=== PATIENT | female | born 1950 | race Hispanic/Latino ===

== ENCOUNTER 2017-10-12 11:58 | Emergency (ER) | payer OTHER ==
[2017-10-12 15:18] LABS: Urine Blood TRACE (NEG); Urine Glucose NEGATIVE (NEG); Urine Protein 1+ (NEG); Urine pH 6.5 (5.0-7.0)
[2017-10-12 15:51] LABS: Absolute Lymphocytes (CBC) 1.8 K/uL (0.7-4.9); Absolute Monocytes 0.7 K/uL (0.1-1.3); Absolute Neutrophil 6.1 K/uL (1.8-8.0); Eosinophils % 1.3 % (0-4.4); Hematocrit 41.6 % (36.0-45.0); Lymphocytes % 20.3 % (15.3-44.8); MCH 32.3 pg (27.0-35.0); MCV 95.9 fL (80-100); MPV 8.8 fL (7.6-11.3); Monocytes % 8.1 % (3.3-12.3); RBC Red Blood Cell Count 4.33 M/uL (3.86-4.86)
--- NOTE | 2017-10-12 15:54 | RAD REPORT ---
EXAM DESCRIPTION: RAD - Chest Single View - 10/12/2017 3:46 pm CLINICAL HISTORY: COUGH Chest pain. COMPARISON: Chest Single View dated 02/11/2016; Chest Single View dated 09/22/2015; CHEST SINGLE VIEW dated 08/08/2013 FINDINGS: Portable technique limits examination quality. The lungs are grossly clear. The heart is normal in size. No displaced fractures. IMPRESSION: No acute intrathoracic process suspected.
[2017-10-12 16:05] LABS: Potassium 3.7 mmol/L (3.5-5.1)
--- NOTE | 2017-10-12 17:59 | ER ---
Nurse's Notes [facility] Name: Cj Nash Age: 67 yrs Sex: Female : 1950 Arrival Date: 10/12/2017 Time: 12:01 Bed 27 Private MD: Victor Hugo Houser E Diagnosis: Bronchitis, not specified as acute or chronic;Cough;Musculoskeletal/upper back pain Presentation: 10/12 12:04 Presenting complaint: Patient states: cough x 4-5 months. Sharp mid back pain that sv started 2 weeks ago with SOB during an episode. Transition of care: patient was not received from another setting of care. Onset of symptoms is unknown. Care prior to arrival: None. 12:04 Method Of Arrival: Ambulatory sv 12:04 Acuity: SAMIR 3 sv 18:21 Risk Assessment: Do you want to hurt yourself or someone else? Patient reports no rv desire to harm self or others. Initial Sepsis Screen: Does the patient meet any 2 criteria? No. Patient's initial sepsis screen is negative. Does the patient have a suspected source of infection? No. Patient's initial sepsis screen is negative. Historical: - Allergies: 12:06 Codeine; sv 12:06 Morphine; sv - Home Meds: 12:06 amlodipine 5 mg tab 1 tab once daily [Active]; duloxetine 60 mg Oral cpDR 1 cap once sv daily [Active]; lorazepam 0.5 mg Oral tab 1 tab 2 times per day for Anxiety [Active]; - PMHx: 12:06 Anxiety; Hyperlipidemia; Hypertension; sv - PSHx: 12:06 Tubal ligation; Cholecystectomy; Hysterectomy; sv - Immunization history:: Adult Immunizations up to date. - Social history:: Smoking status: Patient/guardian denies using tobacco. - Ebola Screening: : No symptoms or risks identified at this time. Screenin:57 Abuse screen: Denies threats or abuse. Denies injuries from another. Nutritional ed1 screening: No deficits noted. Tuberculosis screening: No symptoms or risk factors identified. Fall Risk None identified. Assessment: 12:57 General: Appears in no apparent distress. Behavior is calm, cooperative. Pain: ed1 Complains of pain in mid back area Pain does not radiate. Pain currently is 3 out of 10 on a pain scale. Quality of pain is described as aching, Pain began 2 weeks ago Is continuous, Current management - is no interventions. Neuro: Level of Consciousness is awake, alert, obeys commands, Oriented to person, place, time, situation, Junior Underwriter are equal bilaterally Moves all extremities. Full function Gait is steady, Speech is normal, Facial symmetry appears normal, Pupils are PERRLA, Intact Denies weakness blurred vision dizziness, difficulty swallowing, paresthesias numbness headache photophobia diplopia. Cardiovascular: Denies chest pain, Heart tones S1 S2 present Capillary refill < 3 seconds in bilateral fingers. Respiratory: Reports cough that is persistent since 4-5 months ago. GI: No signs and/or symptoms were reported involving the gastrointestinal system. : No signs and/or symptoms were reported regarding the genitourinary system. EENT: No signs and/or symptoms were reported regarding the EENT system. Derm: Skin is pink, warm \T\ dry. Musculoskeletal: Circulation, motion, and sensation intact. Range of motion: intact in all extremities. 13:00 General: The previous assessment is accurate. Call light remains within reach. . 14:14 Reassessment: Patient appears in no apparent distress at this time. No changes from ed1 previously documented assessment. Patient and/or family updated on plan of care and expected duration. Pain level reassessed. Patient is alert, oriented x 3, equal unlabored respirations, skin warm/dry/pink. Patient states symptoms have not improved. Vital Signs: 12:06 BP 121 / 66; Pulse 72; Resp 18; Temp 98; Pulse Ox 94% ; Weight 91.63 kg; Height 5 ft. 2 sv in. (157.48 cm); Pain 0/10; 13:15 BP 142 / 68; Pulse 63; Resp 17; Temp 99.3; Pulse Ox 96% on R/A; mh5 14:14 BP 115 / 59; Pulse 63; Resp 18; Temp 98.1(O); Pulse Ox 97% on R/A; Pain 2/10; ed1 15:04 BP 116 / 65; Pulse 66; Resp 15; Pulse Ox 98% on R/A; mh5 16:07 BP 128 / 64; Pulse 62; Pulse Ox 96% on R/A; rv 17:22 BP 131 / 63; Pulse 64; Pulse Ox 98% on R/A; rv 12:06 Body Mass Index 36.95 (91.63 kg, 157.48 cm) sv ED Course: 12:01 Patient arrived in ED. sb2 12:02 Victor Hugo Houser MD is Private Physician. sb2 12:05 Triage completed. sv 12:07 Arm band placed on right wrist. sv 12:08 Patient placed in waiting room, Patient notified of wait time. sv 12:09 Jonh Solano MD is Attending Physician. kdr 12:57 Isabel Rm LVN is Primary Nurse. ed1 12:57 Awaiting ED provider evaluation. ed1 12:57 Patient has correct armband on for positive identification. Placed in gown. Bed in low ed1 position. Call light in reach. Pulse ox on. NIBP on. 13:06 Pulse ox on. NIBP on. mh5 13:14 Urine collected: clean catch specimen, clear. 5 15:00 Report given to DELFINO Alves. ed1 15:38 Inserted saline lock: 20 gauge in right antecubital area, using aseptic technique. rv 15:42 CXR XRAY In Process Unspecified. EDMS 15:43 X-ray completed. Portable x-ray completed in exam room. Patient tolerated procedure bb2 well. 17:56 Victor Hugo Houser MD is Referral Physician. kdr 18:20 No provider procedures requiring assistance completed. IV discontinued, bleeding rv controlled, No redness/swelling at site. Pressure dressing applied. Administered Medications: No medications were administered Outcome: 17:58 Discharge ordered by . kdr 18:20 Discharged to home ambulatory. rv 18:20 Condition: good 18:20 Discharge instructions given to patient, Instructed on discharge instructions, follow up and referral plans. medication usage. 18:21 Patient left the ED. rv Signatures: Dispatcher [employer] EDOH Aleksandra Bates, RN RN Jonh Solano MD MD kdr Gracia Keys RN RN Isabel Rm LVN LVN ed1 Rosey Galindo 5 Marleni Francisco bb2 Yaima Brewster sb2 Long Davidson, DELFINO RN rv
--- NOTE | 2017-10-12 17:59 | EDPHYS ---
Physician Documentation [facility] Name: Cj Nash Age: 67 yrs Sex: Female : 1950 Arrival Date: 10/12/2017 Time: 12:01 Bed 27 Private MD: Victor Hugo Houser E ED Physician Jonh Solano HPI: 10/13 17:09 This 67 yrs old Female presents to ER via Ambulatory with complaints of Cough, kdr Back Pain. 17:09 The patient or guardian reports cough, that is intermittent, described as mild, with no kdr sputum. Onset: The symptoms/episode began/occurred Cough has been for 4-5 months and now for the last few days, she has had pain between her shoulders when she coughs. Severity of symptoms: At their worst the symptoms were mild. Modifying factors: The symptoms are alleviated by nothing, the symptoms are aggravated by Coughing. Historical: - Allergies: 10/12 12:06 Codeine; sv 12:06 Morphine; sv - Home Meds: 12:06 amlodipine 5 mg tab 1 tab once daily [Active]; duloxetine 60 mg Oral cpDR 1 cap once sv daily [Active]; lorazepam 0.5 mg Oral tab 1 tab 2 times per day for Anxiety [Active]; - PMHx: 12:06 Anxiety; Hyperlipidemia; Hypertension; sv - PSHx: 12:06 Tubal ligation; Cholecystectomy; Hysterectomy; sv - Immunization history:: Adult Immunizations up to date. - Social history:: Smoking status: Patient/guardian denies using tobacco. - Ebola Screening: : No symptoms or risks identified at this time. ROS: 10/13 17:22 Constitutional: Negative for fever, chills, and weight loss, Eyes: Negative for injury, kdr pain, redness, and discharge, ENT: Negative for injury, pain, and discharge, Neck: Negative for injury, pain, and swelling, Cardiovascular: Negative for chest pain, palpitations, and edema, Abdomen/GI: Negative for abdominal pain, nausea, vomiting, diarrhea, and constipation, Back: Negative for injury and pain, : Negative for injury, bleeding, discharge, and swelling, MS/Extremity: Negative for injury and deformity, Skin: Negative for injury, rash, and discoloration, Neuro: Negative for headache, weakness, numbness, tingling, and seizure activity. Psych: Negative for depression, anxiety, suicide ideation, homicidal ideation, and hallucinations, Allergy/Immunology: Negative for hives, rash, and allergies, Endocrine: Negative for neck swelling, polydipsia, polyuria, polyphagia, and marked weight changes, Hematologic/Lymphatic: Negative for swollen nodes, abnormal bleeding, and unusual bruising. Respiratory: Positive for cough, with no reported sputum, Negative for dyspnea on exertion, hemoptysis, orthopnea, pleurisy, shortness of breath, sputum production, wheezing. Exam: 17:22 Constitutional: This is a well developed, well nourished patient who is awake, alert, kdr and in no acute distress. Head/Face: Normocephalic, atraumatic. Eyes: Pupils equal round and reactive to light, extra-ocular motions intact. Lids and lashes normal. Conjunctiva and sclera are non-icteric and not injected. Cornea within normal limits. Periorbital areas with no swelling, redness, or edema. Neck: Trachea midline, no thyromegaly or masses palpated, and no cervical lymphadenopathy. Supple, full range of motion without nuchal rigidity, or vertebral point tenderness. No Meningismus. Chest/axilla: Normal chest wall appearance and motion. Nontender with no deformity. No lesions are appreciated. Cardiovascular: Regular rate and rhythm with a normal S1 and S2. No gallops, murmurs, or rubs. Normal PMI, no JVD. No pulse deficits. Respiratory: Lungs have equal breath sounds bilaterally, clear to auscultation and percussion. No rales, rhonchi or wheezes noted. No increased work of breathing, no retractions or nasal flaring. Abdomen/GI: Soft, non-tender, with normal bowel sounds. No distension or tympany. No guarding or rebound. No evidence of tenderness throughout. Back: No spinal tenderness. No costovertebral tenderness. Full range of motion. Skin: Warm, dry with normal turgor. Normal color with no rashes, no lesions, and no evidence of cellulitis. MS/ Extremity: Pulses equal, no cyanosis. Neurovascular intact. Full, normal range of motion. Neuro: Awake and alert, GCS 15, oriented to person, place, time, and situation. Cranial nerves II-XII grossly intact. Motor strength 5/5 in all extremities. Sensory grossly intact. Cerebellar exam normal. Normal gait. Psych: Awake, alert, with orientation to person, place and time. Behavior, mood, and affect are within normal limits. Vital Signs: 10/12 12:06 BP 121 / 66; Pulse 72; Resp 18; Temp 98; Pulse Ox 94% ; Weight 91.63 kg; Height 5 ft. 2 sv in. (157.48 cm); Pain 0/10; 13:15 BP 142 / 68; Pulse 63; Resp 17; Temp 99.3; Pulse Ox 96% on R/A; mh5 14:14 BP 115 / 59; Pulse 63; Resp 18; Temp 98.1(O); Pulse Ox 97% on R/A; Pain 2/10; ed1 15:04 BP 116 / 65; Pulse 66; Resp 15; Pulse Ox 98% on R/A; mh5 16:07 BP 128 / 64; Pulse 62; Pulse Ox 96% on R/A; rv 17:22 BP 131 / 63; Pulse 64; Pulse Ox 98% on R/A; rv 12:06 Body Mass Index 36.95 (91.63 kg, 157.48 cm) sv MDM: 17:58 Patient medically screened. kdr 10/13 17:22 Data reviewed: vital signs, nurses notes, lab test result(s), radiologic studies. kdr Counseling: I had a detailed discussion with the patient and/or guardian regarding: the historical points, exam findings, and any diagnostic results supporting the discharge/admit diagnosis, lab results, radiology results, the need for outpatient follow up. 10/12 14:24 Order name: Urine Dipstick--Ancillary (enter results); Complete Time: 17:54 eb 10/12 15:16 Order name: CBC with Diff; Complete Time: 17:54 kdr 10/12 15:16 Order name: CXR XRAY; Complete Time: 17:54 kdr 10/12 15:16 Order name: Chem 7; Complete Time: 17:54 kdr Administered Medications: No medications were administered Disposition: 10/12/17 17:58 Discharged to Home. Impression: Bronchitis, not specified as acute or chronic, Cough, Musculoskeletal/upper back pain. - Condition is Stable. - Discharge Instructions: Back Pain, Adult, [id number], Cough, Adult, [id number]. - Prescriptions for Tessalon Perles 100 mg Oral Capsule - take 1 capsule by ORAL route every 8 hours As needed; 20 capsule. Albuterol Sulfate 90 mcg/actuation - inhale 1-2 puff by INHALATION route every 4-6 hours; 1 Inhaler. - Medication Reconciliation Form, Thank You Letter form. - Follow up: Victor Hugo Houser MD; When: 2 - 3 days; Reason: If symptoms return, Further diagnostic work-up, Recheck today's complaints, Continuance of care, Re-evaluation by your physician. - Problem is an ongoing problem. - Symptoms are unchanged. Signatures: Dispatcher [employer] EDMS Aleksandra Bates RN RN sv Jonh Solano MD MD kdr Long Davidson RN RN rv Corrections: (The following items were deleted from the chart) 10/12 18:21 17:58 10/12/2017 17:58 Discharged to Home. Impression: Bronchitis, not specified as rv acute or chronic; Cough; Musculoskeletal/upper back pain. Condition is Stable. Forms are Medication Reconciliation Form, Thank You Letter, Antibiotic Education, Prescription Opioid Use. Follow up: Victor Hugo Houser; When: 2 - 3 days; Reason: If symptoms return, Further diagnostic work-up, Recheck today's complaints, Continuance of care, Re-evaluation by your physician. Problem is an ongoing problem. Symptoms are unchanged. kdr
[2017-10-12 18:27] VITALS: TEMP 98.1
[2017-10-12 18:30] VITALS: BP 131/63; O2SAT 98
== END 2017-10-12 18:21 | disposition home or self-care (01) ==
LOC: ER 11:58
DX: J40 Bronchitis, not specified as acute or chronic (principal); M54.6 Pain in thoracic spine; I10 Essential (primary) hypertension; Z88.6 Allergy status to analgesic agent
CPT/HCPCS: 36415; 71045; 80048; 81003; 85025; 99284

== ENCOUNTER 2018-06-01 16:41 | Observation (INO) | payer OTHER ==
--- OUTSIDE RECORDS SUMMARY | 2018-06-01 16:43 | XMS REPORT ---
:1950 [facility] Address [address] [place] [address] Dr. Cervantes [address] [place] [id number] Care Team Providers Name Role Phone Unavailable Unavailable Unavailable Problems This patient has no known problems. Allergies, Adverse Reactions, Alerts This patient has no known allergies or adverse reactions. Medications This patient has no known medications.
[2018-06-01] MEDS ORDERED: NA CHLORIDE 0.9% 1,000 ML ONE (17:37)
[2018-06-01] MEDS ORDERED: ONDANSETRON 4 MG/2 ML VIAL ONE ×2 (17:37→22:04)
[2018-06-01] MEDS ORDERED: FENTANYL CITR 100 MCG/2 ML ONE ×2 (17:37→21:24)
[2018-06-01 17:55] LABS: Urine Blood TRACE (NEG); Urine Glucose NEGATIVE (NEG); Urine Protein NEGATIVE (NEG)
[2018-06-01 18:00] LABS: Absolute Lymphocytes (CBC) 1.2 K/uL (0.7-4.9); Absolute Monocytes 1.1 K/uL (0.1-1.3); Absolute Neutrophil 14.9 K/uL (1.8-8.0); Basophils % 0.4 % (0-1.3); Eosinophils % 0.5 % (0-4.4); Hematocrit 45.9 % (36.0-45.0); Lymphocytes % 6.7 % (15.3-44.8); MPV 8.8 fL (7.6-11.3); Monocytes % 6.6 % (3.3-12.3); RBC Red Blood Cell Count 4.86 M/uL (3.86-4.86)
[2018-06-01 18:20] LABS: Bilirubin Direct 0.2 mg/dL (0-0.2); Bilirubin Total 0.8 mg/dL (0.2-1.0); Potassium 3.2 mmol/L (3.5-5.1)
--- NOTE | 2018-06-01 18:57 | RAD REPORT ---
EXAM DESCRIPTION: CT - Abdomen Pelvis W Contrast - 06/01/2018 6:39 pm CLINICAL HISTORY: Abdominal pain COMPARISON: none. TECHNIQUE: Computed axial tomography of the abdomen pelvis was obtained. 100 cc Isovue-300 was admin istered intravenously. Oral contrast was not requested which limits evaluation of bowel. All CT scans are performed using dose optimization technique as appropriate and may include automated exposure control or mA/KV adjustment according to patient size. FINDINGS: The liver, spleen, pancreas, adrenal and kidneys appear unremarkable. Small right renal cy st There is no evidence of diverticulitis. An umbilical hernia contains fat. Neck measures 19 millimeter s. Small hiatal hernia The appendix extends superior medially from the cecum. The appendix is dilated. Mild stranding is pre sent within the adjacent fat. An abscess is not seen. IMPRESSION: Appendicitis
--- NOTE | 2018-06-01 19:11 | ER ---
Nurse's Notes [facility] Name: Cj Nash Age: 68 yrs Sex: Female : 1950 Arrival Date: 06/01/2018 Time: 16:45 Bed 23 Private MD: Diagnosis: Acute appendicitis Presentation: 06/01 16:45 Presenting complaint: EMS states: Abdominal pain that started this am, worse in LLQ, ph denies N/V/D or fever, VSS en route. Transition of care: patient was not received from another setting of care. Onset of symptoms was June 01, 2018. Risk Assessment: Do you want to hurt yourself or someone else? Patient reports no desire to harm self or others. Initial Sepsis Screen: Does the patient meet any 2 criteria? No. Patient's initial sepsis screen is negative. Does the patient have a suspected source of infection? No. Patient's initial sepsis screen is negative. Care prior to arrival: None. 16:45 Method Of Arrival: EMS: [facility] ph 17:02 Acuity: SAMIR 3 iw Historical: - Allergies: 18:07 Codeine; ph 18:07 Morphine; ph - Home Meds: 18:56 amlodipine 5 mg tab 1 tab once daily [Active]; duloxetine 60 mg Oral cpDR 1 cap once mg2 daily [Active]; furosemide 20 mg Oral tab 1 tab once daily [Active]; lorazepam 0.5 mg Oral tab 1 tab 2 times per day for Anxiety [Active]; - PMHx: 18:07 Anxiety; Hyperlipidemia; Hypertension; ph - PSHx: 18:07 Cholecystectomy; Tubal ligation; Hysterectomy; ph - Immunization history:: Adult Immunizations unknown. - Social history:: Smoking status: Patient/guardian denies using tobacco. - Ebola Screening: : No symptoms or risks identified at this time. Screenin:09 Abuse screen: Denies threats or abuse. Denies injuries from another. Nutritional ph screening: No deficits noted. Tuberculosis screening: No symptoms or risk factors identified. Fall Risk None identified. Assessment: 17:15 General: Appears in no apparent distress. comfortable, well groomed, Behavior is calm, ph cooperative, appropriate for age. Pain: Complains of pain in left lower quadrant Pain radiates to right upper quadrant, left upper quadrant and right lower quadrant Quality of pain is described as sharp, Pain began " this morning". Neuro: Level of Consciousness is awake, alert, obeys commands, Oriented to person, place, time, situation. Cardiovascular: Capillary refill < 3 seconds in bilateral fingers Patient's skin is warm and dry. Respiratory: Airway is patent Respiratory effort is even, unlabored, Respiratory pattern is regular, symmetrical. GI: Abdomen is round non-distended, Bowel sounds present X 4 quads. Abd is soft X 4 quads Abdomen is tender to palpation in left lower quadrant Reports lower abdominal pain. Derm: Skin is intact, Skin is pink, warm \\T\\ dry. Musculoskeletal: Circulation, motion, and sensation intact. Range of motion: intact in all extremities. 18:44 Reassessment: Patient appears in no apparent distress at this time. Patient and/or ph family updated on plan of care and expected duration. Pain level reassessed. Patient is alert, oriented x 3, equal unlabored respirations, skin warm/dry/pink. Pt resting quietly, awaiting CT results, VSS. Vital Signs: 16:51 BP 146 / 73; Pulse 96; Resp 18; Temp 97.5(O); Pulse Ox 99% ; lt1 18:24 BP 151 / 75; Pulse 93; Resp 18; Pulse Ox 96% on R/A; mg2 19:17 BP 136 / 80; Pulse 97; Resp 20; Temp 97.2(O); Pulse Ox 99% on R/A; Pain 0/10; ed1 ED Course: 16:45 Patient arrived in ED. ph 16:49 [facility] kb 16:49 Peyman Hutchison MD is Attending Physician. kb 17:02 Triage completed. iw 17:30 Radiology exam delayed due to lab results not completed at this time. (BUN/Creatinine). vm2 17:41 Initial lab(s) drawn, by me, sent to lab. Inserted saline lock: 20 gauge in right lt1 antecubital area, using aseptic technique. 18:06 Loli Haque, RN is Primary Nurse. ph 18:09 Patient has correct armband on for positive identification. Placed in gown. Bed in low ph position. Call light in reach. Side rails up X 1. lunchroom monitor on. Pulse ox on. NIBP on. Warm blanket given. 18:09 Arm band placed on. ph 18:34 CT completed. Patient tolerated procedure well. Patient moved to CT via wheelchair. vr Patient moved back from CT. 18:39 CT Abd/Pelvis - W/Contrast In Process Unspecified. EDMS 18:56 No provider procedures requiring assistance completed. mg2 19:09 Jm Monson MD is Hospitalizing Provider. kb 19:29 Chest Single View XRAY In Process Unspecified. EDMS 19:31 Primary Nurse role handed off by Loli Haque RN ed1 19:31 Isabel Rm RN is Primary Nurse. ed1 19:44 Resting quietly. Awaiting surgery. ed1 20:18 Patient admitted, IV remains in place. intact, No redness/swelling at site. mg2 Administered Medications: 17:48 Drug: Zofran 4 mg Route: IVP; Site: right antecubital; mg2 18:45 Follow up: Response: No adverse reaction ph 17:48 Drug: fentaNYL (PF) 25 mcg Route: IVP; Site: right antecubital; mg2 18:46 Follow up: Response: No adverse reaction ph 17:49 Drug: NS 0.9% 1000 ml Route: IV; Rate: 1000 ml; Site: right antecubital; mg2 18:45 Follow up: Response: No adverse reaction; IV Status: Completed infusion ph 19:30 Drug: Flagyl 500 mg Volume: 100 ml; Route: IVPB; Rate: 200 ml/hr; Infused Over: 30 ed1 mins; Site: right antecubital; 20:00 Follow up: IV Status: Completed infusion ed1 19:44 Drug: Mefoxin 2 grams {Note: Given slow IV push.} Route: IVPB; Infused Over: 30 mins; ed1 Site: right antecubital; 20:00 Follow up: Response: No adverse reaction; IV Status: Completed infusion ed1 Outcome: 19:09 Decision to Hospitalize by Provider. kb 20:18 Admitted to OR accompanied by nurse, via stretcher, with chart, Report called to genet Be RN 20:18 Condition: stable 20:18 Discharge instructions given to patient, Instructed on the need for admit, Demonstrated understanding of instructions. 20:19 Patient left the ED. ed1 Signatures: Dispatcher [employer] EDMS Noemi Rojas, BEER COIL CLEANER-C BEER COIL CLEANER-CkLaivnia Munson RN RN Isabel Graham, RN RN ed1 Emilia Connolly, Loli, RN RN Emilia Jimenez [facility] Demario Friend, RN RN [facility] [place], Sue [facility]
--- NOTE | 2018-06-01 19:11 | EDPHYS ---
Physician Documentation [facility] Name: Cj Nash Age: 68 yrs Sex: Female : 1950 Arrival Date: 06/01/2018 Time: 16:45 Bed 23 Private MD: ED Physician Peyman Hutchison HPI: 06/01 18:54 This 68 yrs old Female presents to ER via EMS with complaints of abdominal kb pain. 18:54 The patient presents with abdominal pain that is diffuse. Onset: The symptoms/episode kb began/occurred today, at 11:30. The symptoms do not radiate. Associated signs and symptoms: Pertinent positives: diarrhea, nausea. The symptoms are described as constant. Modifying factors: The symptoms are alleviated by nothing, the symptoms are aggravated by nothing. Severity of pain: At its worst the pain was mild moderate in the emergency department the pain is unchanged. The patient has not experienced similar symptoms in the past. The patient has not recently seen a physician. Historical: - Allergies: 18:07 Codeine; ph 18:07 Morphine; ph - Home Meds: 18:56 amlodipine 5 mg tab 1 tab once daily [Active]; duloxetine 60 mg Oral cpDR 1 cap once mg2 daily [Active]; furosemide 20 mg Oral tab 1 tab once daily [Active]; lorazepam 0.5 mg Oral tab 1 tab 2 times per day for Anxiety [Active]; - PMHx: 18:07 Anxiety; Hyperlipidemia; Hypertension; ph - PSHx: 18:07 Cholecystectomy; Tubal ligation; Hysterectomy; ph - Immunization history:: Adult Immunizations unknown. - Social history:: Smoking status: Patient/guardian denies using tobacco. - Ebola Screening: : No symptoms or risks identified at this time. ROS: 18:54 Constitutional: Negative for fever, chills, and weight loss, ENT: Negative for injury, kb pain, and discharge, Neck: Negative for injury, pain, and swelling, Cardiovascular: Negative for chest pain, palpitations, and edema, Respiratory: Negative for shortness of breath, cough, wheezing, and pleuritic chest pain, Back: Negative for injury and pain, : Negative for injury, bleeding, discharge, and swelling, MS/Extremity: Negative for injury and deformity, Skin: Negative for injury, rash, and discoloration, Neuro: Negative for headache, weakness, numbness, tingling, and seizure. 18:54 Abdomen/GI: Positive for abdominal pain, nausea, diarrhea, Negative for vomiting, constipation, abdominal cramps, abdominal distension, anorexia. Exam: 18:54 Constitutional: This is a well developed, well nourished patient who is awake, alert, kb and in no acute distress. Head/Face: Normocephalic, atraumatic. ENT: Nares patent. No nasal discharge, no septal abnormalities noted. Tympanic membranes are normal and external auditory canals are clear. Oropharynx with no redness, swelling, or masses, exudates, or evidence of obstruction, uvula midline. Mucous membranes moist. Neck: Trachea midline, no thyromegaly or masses palpated, and no cervical lymphadenopathy. Supple, full range of motion without nuchal rigidity, or vertebral point tenderness. No Meningismus. Chest/axilla: Normal chest wall appearance and motion. Nontender with no deformity. No lesions are appreciated. Cardiovascular: Regular rate and rhythm with a normal S1 and S2. No gallops, murmurs, or rubs. Normal PMI, no JVD. No pulse deficits. Respiratory: Lungs have equal breath sounds bilaterally, clear to auscultation and percussion. No rales, rhonchi or wheezes noted. No increased work of breathing, no retractions or nasal flaring. Skin: Warm, dry with normal turgor. Normal color with no rashes, no lesions, and no evidence of cellulitis. MS/ Extremity: Pulses equal, no cyanosis. Neurovascular intact. Full, normal range of motion. Neuro: Awake and alert, GCS 15, oriented to person, place, time, and situation. Cranial nerves II-XII grossly intact. Motor strength 5/5 in all extremities. Sensory grossly intact. Cerebellar exam normal. Normal gait. 18:54 Abdomen/GI: Inspection: abdomen appears normal, Bowel sounds: normal, in all quadrants, Palpation: soft, in all quadrants, moderate abdominal tenderness, in the right lower quadrant and left lower quadrant. Vital Signs: 16:51 BP 146 / 73; Pulse 96; Resp 18; Temp 97.5(O); Pulse Ox 99% ; lt1 18:24 BP 151 / 75; Pulse 93; Resp 18; Pulse Ox 96% on R/A; mg2 19:17 BP 136 / 80; Pulse 97; Resp 20; Temp 97.2(O); Pulse Ox 99% on R/A; Pain 0/10; ed1 MDM: 16:51 Patient medically screened. kb 18:59 Data reviewed: vital signs, nurses notes. Data interpreted: Pulse oximetry: on room air kb is 96 %. Interpretation: normal. 19:06 Counseling: I had a detailed discussion with the patient and/or guardian regarding: the kb historical points, exam findings, and any diagnostic results supporting the discharge/admit diagnosis, lab results, radiology results, the need for further work-up and treatment in the hospital. 19:08 Physician consultation: Tylor Harkins MD was called at 19:08, regarding consult, patient's kb condition, and will see patient in OR, shortly. Physician consultation: Jm Monson MD was contacted at 19:09, regarding admission, to the medical/surgical unit. patient's condition, and will see patient in inpatient room, shortly. 06/01 17:23 Order name: Basic Metabolic Panel; Complete Time: 18:30 kb 06/01 17:23 Order name: CBC with Diff; Complete Time: 19:48 kb 06/01 17:23 Order name: Hepatic Function; Complete Time: 18:30 kb 06/01 17:23 Order name: Lipase; Complete Time: 18:30 kb 06/01 17:44 Order name: Urine Dipstick--Ancillary (enter results); Complete Time: 18:15 ms 06/01 17:44 Order name: Urine --Ancillary (enter results); Complete Time: 18:15 ms 06/01 17:23 Order name: CT Abd/Pelvis - W/Contrast; Complete Time: 19:00 kb 06/01 19:12 Order name: Chest Single View XRAY; Complete Time: 19:59 kb 06/01 19:12 Order name: Protime (+inr) kb 06/01 19:12 Order name: Ptt, Activated kb 06/01 19:47 Order name: Manual Differential; Complete Time: 19:48 EDMS 06/01 17:23 Order name: IV Saline Lock; Complete Time: 17:42 kb 06/01 17:23 Order name: Labs collected and sent; Complete Time: 17:42 kb 06/01 19:03 Order name: NPO; Complete Time: 19:16 polina Administered Medications: 17:48 Drug: Zofran 4 mg Route: IVP; Site: right antecubital; mg2 18:45 Follow up: Response: No adverse reaction ph 17:48 Drug: fentaNYL (PF) 25 mcg Route: IVP; Site: right antecubital; mg2 18:46 Follow up: Response: No adverse reaction ph 17:49 Drug: NS 0.9% 1000 ml Route: IV; Rate: 1000 ml; Site: right antecubital; mg2 18:45 Follow up: Response: No adverse reaction; IV Status: Completed infusion ph 19:30 Drug: Flagyl 500 mg Volume: 100 ml; Route: IVPB; Rate: 200 ml/hr; Infused Over: 30 ed1 mins; Site: right antecubital; 20:00 Follow up: IV Status: Completed infusion ed1 19:44 Drug: Mefoxin 2 grams {Note: Given slow IV push.} Route: IVPB; Infused Over: 30 mins; ed1 Site: right antecubital; 20:00 Follow up: Response: No adverse reaction; IV Status: Completed infusion ed1 Disposition: 06/01/18 19:09 Hospitalization ordered by Jm Monson for Observation. Preliminary diagnosis is Acute appendicitis. - Bed requested for Operating Room. - Status is Observation. ed1 - Condition is Stable. - Problem is new. - Symptoms are unchanged. UTI on Admission? No Addendum: 06/04/2018 10:14 Co-signature as Attending Physician, Peyman Hutchison MD I agree with the assessment and c [place] plan of care. Signatures: Dispatcher [employer] EDTN Noemi Rojas, KAIAKO KURA TUARUA-C KAIAKO KURA TUARUA-Ckb Peyman Hutchiosn MD MD cha Riggs, Erika RN RN ed1 Loli Haque RN RN Demario Friend, DELFINO RN mg2 Corrections: (The following items were deleted from the chart) 06/01 19:11 19:09 Hospitalization Ordered by Jm Monson MD for Observation. Preliminary kb diagnosis is Acute appendicitis. Bed requested for Telemetry/MedSurg (observation). Status is Observation. Condition is Stable. Problem is new. Symptoms are unchanged. UTI on Admission? No. kb 20:19 19:11 06/01/2018 19:09 Hospitalization Ordered by Jm Monson MD for Observation. ed1 Preliminary diagnosis is Acute appendicitis. Bed requested for Operating Room. Status is Observation. Condition is Stable. Problem is new. Symptoms are unchanged. UTI on Admission? No. kb
[2018-06-01] MEDS ORDERED: CEFOXITIN/SWI 1gm 1 GM/10 ML SYR ONE ×2 (19:29→19:42)
[2018-06-01] MEDS ORDERED: METRONIDAZOLE 500mg IVPB 0 MG/0 ML BAG IV ONE (19:29)
[2018-06-01] MEDS ORDERED: METRONIDAZOLE 500mg IVPB 500 MG/100 ML BAG IV ONE (19:33)
[2018-06-01 19:46] LABS: Blood Morphology Comment NOT SEEN (NOT SEEN); Platelet Estimate ADEQ
--- NOTE | 2018-06-01 19:51 | RAD REPORT ---
EXAM DESCRIPTION: Ana Single View06/01/2018 7:29 pm CLINICAL HISTORY: Abdominal pain COMPARISON: October 2017 FINDINGS: The lungs appear clear of acute infiltrate. The heart is normal size IMPRESSION: No acute abnormalities displayed
--- NOTE | 2018-06-01 19:53 | P.HP ---
Certification for Inpatient Patient admitted to: Observation With expected LOS: <2 Midnights Practitioner: I am a practitioner with admitting privileges, knowledge of patient current condition, hospital course, and medical plan of care. Services: Services provided to patient in accordance with Admission requirements found in Title 42 Section 412.3 of the Code of Federal Regulations Patient History Date of Service: 06/01/18 Reason for admission: acute appendicitis History of Present Illness: Ms Nash is a 68 years old woman with history of HTN, Anxiety, dyslipidemia, who start this morning with diffuse abdominal pain, more localized on her lower abdomen. It was constant, progressively severe, maximum 8-9/10 of intensity. She denied vomiting and diarrhea, but has had nausea. In ER lab work was remarkable for leukocytosis 17.1K, afebrile, hemodynamically stable. CT abd/ pelvis remarkable for acute appendicitis. At my encounter, her pain was well controlled. Allergies codeine [Codeine] Allergy (Intermediate, Verified 08/02/16 10:35) Itching/Hives/Rash morphine Adverse Reaction (Verified 08/02/16 10:36) hallucinations Home Medications: Duloxetine HCl [Cymbalta] 60 mg PO DAILY 08/08/13 Simvastatin 20 mg PO DAILY 08/08/13 Amlodipine Besylate 10 mg PO [id number] 08/02/16 Solifenacin [Vesicare] 5 mg PO DAILY 08/02/16 - Past Medical/Surgical History Diabetic: No -: htn -: Hyperlipidemia -: Obesity -: Anxiety -: Vitamin D deficiency -: tubal 1972 -: hysterectomy 33 yrs ago -: cholecystectomy 10 yrs ago Psychosocial/ Personal History: , 7 children, She does not work. - Family History Father -: Heart disease Mother -: Hypertension, Cancer Notes: mother had colon cancer - Social History Smoking Status: Never smoker Alcohol use: No CD- Drugs: No Caffeine use: No Place of Residence: Home Review of Systems 10-point ROS is otherwise unremarkable Physical Examination - Physical Exam General: Alert, In no apparent distress HEENT: Atraumatic, PERRLA, Mucous membr. moist/pink, EOMI, Sclerae nonicteric Neck: Supple, 2+ carotid pulse no bruit, No LAD, Without JVD or thyroid abnormality Respiratory: Clear to auscultation bilaterally, Normal air movement Cardiovascular: Regular rate/rhythm, Normal S1 S2 Gastrointestinal: Normal bowel sounds, Tenderness (diffuse tenderness to palpation) Musculoskeletal: No tenderness Integumentary: No rashes Neurological: Normal speech, Normal strength at 5/5 x4 extr, Normal tone, Normal affect Lymphatics: No axilla or inguinal lymphadenopathy - Studies Laboratory Data (last 24 hrs) 06/01/18 17:35: WBC 17.4 H, Hgb 15.4 H, Hct 45.9 H, Plt Count 271 06/01/18 17:35: Sodium 140, Potassium 3.2 L, BUN 14, Creatinine 0.70, Glucose 101, Total Bilirubin 0.8, AST 19, ALT 25, Alkaline Phosphatase 114, Lipase 109 Assessment and Plan - Problems (Diagnosis) (1) Acute appendicitis Current Visit: Yes Status: Acute Qualifiers: Acute appendicitis type: unspecified acute appendicitis type Qualified Code (s): K35.80 - Unspecified acute appendicitis (2) Anxiety Current Visit: Yes Status: Acute (3) Dyslipidemia Current Visit: Yes Status: Acute (4) HTN (hypertension) Onset Date: 09/23/15 Current Visit: No Status: Chronic Qualifiers: Hypertension type: essential hypertension - Plan The patient will be kept NPO, start empiric antibiotics, Dr Harkins was consulted and he is planning to do appendectomy tonight. Will follow up after surgery. - Advance Directives Does patient have a Living Will: No Does patient have a Durable POA for Healthcare: No - Code Status/Comfort Care Code Status Assessed: Yes Code Status: Full Code
[2018-06-01 20:25] LABS: Protime INR 0.96
[2018-06-01] MEDS ORDERED: Ringers Lactate 1,000 ML IV ONE (20:33)
[2018-06-01] MEDS ORDERED: SUCCINYLCHOLINE 20 MG/ML (10 ML) IV ONE (21:15)
[2018-06-01] MEDS ORDERED: LIDOCAINE 2% MPF 5 ML VIAL ONE (21:23)
[2018-06-01] MEDS ORDERED: PROPOFOL 200 MG/20 ML VIAL IV ONE (21:23)
[2018-06-01] MEDS ORDERED: ROCURONIUM 50 MG/5 ML VIAL IV ONE (21:24)
[2018-06-01] MEDS ORDERED: BUPIVACAINE 0.5% PF 10 ML VIAL ONE (21:33)
[2018-06-01] MEDS ORDERED: GLYCOPYRROLATE 0.2 MG/ML SYR ONE (22:03)
[2018-06-01] MEDS ORDERED: DEXAMETHASONE 10 MG/ML VIAL ONE (22:04)
[2018-06-01] MEDS ORDERED: KETOROLAC 30 MG/ML INJ ONE (22:04)
[2018-06-01] MEDS ORDERED: NEOSTIGMINE 1 MG/ML -10 ML VIAL ONE (22:09)
[2018-06-01] MEDS ORDERED: ONDANSETRON 4 MG/2 ML VIAL IV PRN (23:33)
[2018-06-01] MEDS ORDERED: NA CHLORIDE 0.9% 1,000 ML IV SCH (23:33)
[2018-06-01] MEDS ORDERED: KETOROLAC 30 MG/ML INJ IV PRN (23:33)
[2018-06-01 23:34] VITALS: BMI 37.5
[2018-06-01] MEDS: CIPROFLOXACIN 400mg IV 400 MG/200 ML BAG IV SCH (23:50)
[2018-06-02] MEDS ORDERED: HYDROMORPHONE HCL 1 MG/ML INJ IV PRN (00:04)
[2018-06-02] MEDS ORDERED: TRAMADOL 37.5mg/APAP 325mg PER TAB PO PRN (00:16)
[2018-06-02] MEDS: METRONIDAZOLE 500mg IVPB 500 MG/100 ML BAG IV SCH ×3 (00:59→13:00)
[2018-06-02] MEDS ORDERED: NACHLORIDE 0.45% 1,000 ML IV SCH (01:00)
[2018-06-02] MEDS ORDERED: METRONIDAZOLE 500mg IVPB 500 MG/100 ML BAG IV SCH (01:00)
[2018-06-02] MEDS: NACHLORIDE 0.45% 1,000 ML IV SCH ×2 (01:00→14:20)
[2018-06-02] MEDS ORDERED: CEFOXITIN SODIUM 1 GM/VIAL IVPB SCH (02:00)
--- NOTE | 2018-06-02 02:43 | PREOPCON ---
Date of Consultation: 06/01/2018 Reason: Abdominal pain. History Of Present Illness: The patient is a 68-year-old female, who comes in with acute onset of ri ght lower quadrant abdominal pain. No radiation associated with some nausea, but no vomiting. Occas ional diarrhea. No constipation. No blood in her stool. No dysuria or hematuria. No sore throat, runny nose, cough, headaches, or dizziness. She does not have anorexia, she does not have chest pain , and she does not have fever or chills. Review of Systems: Otherwise unremarkable. The pain is constant in nature. Past Medical History: Significant for hypercholesterolemia, hypertension, type 2 diabetes, anxiety. Past Surgical History: Bladder suspension, bilateral tubal ligation, vaginal hysterectomy with 1 ova ry removed, and a cholecystectomy laparoscopically. Allergies: INCLUDE CODEINE AND MORPHINE. Social History: She does not smoke or drink. Family History: Significant for [place] in the father and colon cancer in the mother. The patient did have a Cologuard test, which was negative, a couple of years ago. Physical Examination: Vital Signs: Stable. She is afebrile. General: She is awake, alert, and oriented x3. Head and Neck: Cranial nerves 2 through 12 are grossly within normal limits. No neck masses. No JV D. Throat clear. Neck is supple. Chest: Clear. Heart: S1, S2. Abdomen: Soft, with a Rovsing sign. Positive bowel sounds. There is a right lower quadrant tendern ess with minimal rebound. No rigidity or guarding. Extremities: Adequately perfused. Nontender. Neuro: Nonfocal. Laboratory Data: White count is 17.4 with a left shift. INR is . Chemistry is reviewed. Potassium is slightly low at 3.2. Glucose is 101. Remainder of the LFTs and chemistry are within n ormal limits. A CT of the abdomen and pelvis reviewed and shows the appendix to extend superiorly an d medially from the cecum. Appendix is dilated. There is stranding present within the adjacent fat. No abscess is seen. Assessment: Acute appendicitis. Plan: Admit n.p.o., IV fluid, IV antibiotic, to the OR for laparoscopic appendectomy, possible open. The patient understands the risks, benefits, and alternatives and agrees to procedure. /MODL Voice ID: [id number] Report ID: [id number]
[2018-06-02 04:17] VITALS: O2SAT 96
[2018-06-02 05:46] LABS: Absolute Lymphocytes (CBC) 0.4 K/uL (0.7-4.9); Absolute Monocytes 0.1 K/uL (0.1-1.3); Absolute Neutrophil 11.3 K/uL (1.8-8.0); Lymphocytes % 3.8 % (15.3-44.8); MPV 9.1 fL (7.6-11.3); Monocytes % 0.5 % (3.3-12.3); RBC Red Blood Cell Count 4.57 M/uL (3.86-4.86)
[2018-06-02 05:54] LABS: Magnesium 2.2 mg/dL (1.8-2.4); Phosphorus 2.3 mg/dL (2.5-4.9); Potassium 3.6 mmol/L (3.5-5.1)
[2018-06-02] MEDS ORDERED: POTASSIUM 25 MEQ EFFERV TAB PO ONE (06:16)
--- NOTE | 2018-06-02 06:37 | OP ---
Date of Procedure: 06/01/2018 Surgeon: Tylor Harkins MD Preoperative Diagnosis: Acute appendicitis. Postoperative Diagnosis: Acute appendicitis with extensive adhesions. Procedure Performed: Laparoscopic appendectomy, lysis of adhesions. Estimated Blood Loss: Minimal. Specimen: Appendix. Findings: As above. Anesthesia: General. Complications: None. Disposition: The patient tolerated the procedure in stable condition and taken to recovery in good g eneral condition. Description Of Procedure: The patient was brought to the OR and placed in supine position. General anesthesia was began. The patient was prepped and draped in usual sterile fashion. Marcaine 0.5% wa s infiltrated locally. A 15-blade was used to make a 1 cm supraumbilical midline incision. Subcutan eous tissue was divided. The fascia was identified and divided and then #1 Vicryl stay suture was pl aced. Peritoneal cavity was entered with sharp and blunt dissection. A 12-mm trocar was placed into the peritoneal cavity under direct vision. Pneumoperitoneum was established and then laparoscopy re vealed extensive adhesions in the periumbilical region. Subsequently space was identified in the sup rapubic and left lower quadrant and 5-mm trocars were placed under direct vision and then dissection proceeded with lysis of adhesions performed for approximately 15-20 minutes and there was no evidence of any bleeding. Then, the diagnostic laparoscopy was performed. The appendix and the base of the appendix and mesoappendix were clearly identified. The appendix had suppuration consistent with acut e appendicitis. The mesoappendix and base of the appendix divided with an Endo-MARY stapling device. No evidence of bleeding noted. There was minimal oozing, which stopped on its own and then this was irrigated. The appendix was retrieved through the umbilicus via an EndoCatch bag. There was no rosaura dence of bleeding or bowel injury appreciated. Subsequently, all trocars were removed under direct v ision. Stay sutures were tied to each other across the fascial defect. Subcutaneous wounds were irr igated. Bleeding was controlled with cautery. A 3-0 chromic was used to approximate the subcutaneou s tissue and close the skin. Sterile dressing was applied. The patient was awakened and taken to re covery in good general condition. /MODL Voice ID: [id number] Report ID: [id number]
[2018-06-02] MEDS ORDERED: LORAZEPAM 0.5 MG TABLET PO PRN (07:57)
[2018-06-02] MEDS ORDERED: DULOXETINE 30 MG CAP PO SCH (09:00)
[2018-06-02] MEDS: CEFOXITIN/SWI 1gm 1 GM/10 ML SYR IV SCH ×2 (09:10→13:00)
[2018-06-02] MEDS: CIPROFLOXACIN 400mg IV 400 MG/200 ML BAG IV SCH (09:16)
--- NOTE | 2018-06-02 09:40 | EKG ---
Test Date: 2018-06-01 Test Time: 19:25:16 Family Manager: KEMALT MEASUREMENT RESULTS: Intervals: Rate: 97 IA: 188 QRSD: 102 QT: 368 QTc: 467 [place]: P: 45 IA: 188 QRS: -63 T: 65 INTERPRETIVE STATEMENTS: Normal sinus rhythm Left anterior fascicular block Minimal voltage criteria for LVH, may be normal variant Abnormal ECG Compared to ECG 02/11/2016 06:08:12 No significant changes Electronically Signed On 06-02-18 09:40:03 CDT by Ron Wall
--- NOTE | 2018-06-02 09:42 | P.PN ---
Subjective Date of Service: 06/02/18 Primary Care Provider: Dr. Houser Chief Complaint: acute appendicitis Subjective: Improving Physical Examination - Vital Signs Temperature: 98.1 F Blood Pressure: 133/67 Pulse: 84 Respirations: 18 Pulse Ox (%): 96 - Physical Exam General: Alert, In no apparent distress, Oriented x3, Cooperative HEENT: Atraumatic Neck: Supple Respiratory: Clear to auscultation bilaterally, Normal air movement Cardiovascular: Normal pulses, Regular rate/rhythm Gastrointestinal: Normal bowel sounds, Soft and benign, Non-distended, No masses , No rebound, No guarding Musculoskeletal: No erythema, No tenderness, No warmth Integumentary: No tenderness/swelling, No erythema, No warmth, No cyanosis Neurological: Normal speech, Normal strength at 5/5 x4 extr, Normal tone, Normal affect - Studies Laboratory Data (last 24 hrs) 06/01/18 19:25: PT 11.3, INR 0.96, APTT 32.1 06/01/18 17:35: WBC 17.4 H, Hgb 15.4 H, Hct 45.9 H, Plt Count 271 06/01/18 17:35: Sodium 140, Potassium 3.2 L, BUN 14, Creatinine 0.70, Glucose 101, Total Bilirubin 0.8, AST 19, ALT 25, Alkaline Phosphatase 114, Lipase 109 Medications List Reviewed: Yes Assessment & Plan Discharge Plan: Home Plan to discharge in: 24 Hours Physician Review Additional Text: Impression: Acute appendicitis status post laparoscopic appendectomy and lysis of adhesions Hypertension Hyperlipidemia Obesity, BMI 37.5 Plan: Acute appendicitis status post laparoscopic appendectomy and lysis of adhesions : Patient doing well post operatively. Patient to try a GI soft diet. Continue incentive spirometer. Encourage ambulation. Anticipate discharge as early as today if okay with surgery. Will discuss with surgery. Hypertension: Restart home medication and adjust. Hyperlipidemia: Restart home medication. Obesity, BMI 37.5: Address lifestyle modification education. Time Spent Managing Pts Care (In Minutes): 55
--- NOTE | 2018-06-02 12:09 | P.DS ---
Admission Date: 06/01/18 Discharge Date: 06/02/18 Primary Care Provider: Dr. Houser Disposition: ROUTINE DISCHARGE Discharge Condition: GOOD Reason for Admission: acute appendicitis Consultations: Surgery-Dr. Harkins Procedures: CT scan: FINDINGS: The liver, spleen, pancreas, adrenal and kidneys appear unremarkable. Small right renal cyst There is no evidence of diverticulitis. An umbilical hernia contains fat. Neck measures 19 millimeters. Small hiatal hernia The appendix extends superior medially from the cecum. The appendix is dilated. Mild stranding is present within the adjacent fat. An abscess is not seen. IMPRESSION: Appendicitis Surgery: Laparoscopic appendectomy with lysis of adhesions Medical Problem List: Acute appendicitis status post laparoscopic appendectomy and lysis of adhesions Hypertension Hyperlipidemia Obesity, BMI 37.5 GERD with hiatal hernia Depression with anxiety Brief History of Present Illness: 68-year-old female presented to the emergency room with abdominal pain. Patient found to have acute appendicitis. Patient admitted for surgery. Hospital Course: Patient presented with acute appendicitis. Patient seen and evaluated by surgery. Surgical intervention was required. Patient had laparoscopic appendectomy and lysis of adhesions. Patient did well post operatively. Patient able to tolerate GI soft diet. At discharge patient will continue with Cipro and Flagyl as recommended by surgery. Patient to continue with incentive spirometer. Patient will continue with surgical instructions. Patient to follow up with surgery within 1 week. No heavy lifting, pushing or pulling is recommended. Patient with hypertension. At discharge patient will continue with Norvasc 10 mg daily. Patient with hyperlipidemia. At discharge she will continue with her medication -Zocor 10 mg daily. Patient with GERD and hiatal hernia noted on CT scan. At discharge she will continue with Protonix 40 mg 1 pill daily. Patient may benefit with GI evaluation in the future to further evaluate. Patient with depression and anxiety. Patient will continue with her medication. Vital Signs/Physical Exam: Temp Pulse Resp BP Pulse Ox 98.1 F 84 18 133/67 96 06/02/18 09:42 06/02/18 09:42 06/02/18 09:42 06/02/18 09:42 06/02/18 09:42 General: Alert, In no apparent distress, Oriented x3, Cooperative HEENT: Atraumatic Neck: Supple Respiratory: Clear to auscultation bilaterally, Normal air movement Cardiovascular: Normal pulses, Regular rate/rhythm Gastrointestinal: Normal bowel sounds, Soft and benign, Non-distended, No tenderness, No masses, No rebound, No guarding Musculoskeletal: No erythema, No tenderness, No warmth Integumentary: No tenderness/swelling, No erythema, No warmth, No cyanosis Neurological: Normal speech, Normal strength at 5/5 x4 extr, Normal tone, Normal affect Laboratory Data at Discharge: WBC 11.8 K/uL (4.3-10.9) H D 06/02/18 04:32 Hgb 14.5 g/dL (12.0-15.0) 06/02/18 04:32 Hct 43.0 % (36.0-45.0) 06/02/18 04:32 Plt Count 252 K/uL (152-406) 06/02/18 04:32 PT 11.3 SECONDS (9.5-12.5) 06/01/18 19:25 INR 0.96 06/01/18 19:25 APTT 32.1 SECONDS (24.3-36.9) 06/01/18 19:25 Sodium 140 mmol/L (136-145) 06/02/18 04:32 Potassium 3.6 mmol/L (3.5-5.1) 06/02/18 04:32 BUN 12 mg/dL (7-18) 06/02/18 04:32 Creatinine 0.79 mg/dL (0.55-1.3) 06/02/18 04:32 Glucose 162 mg/dL (74-106) H 06/02/18 04:32 Phosphorus 2.3 mg/dL (2.5-4.9) L 06/02/18 04:32 Magnesium 2.2 mg/dL (1.8-2.4) 06/02/18 04:32 Total Bilirubin 0.8 mg/dL (0.2-1.0) 06/01/18 17:35 AST 19 U/L (15-37) 06/01/18 17:35 ALT 25 U/L (12-78) 06/01/18 17:35 Alkaline Phosphatase 114 U/L (45-117) 06/01/18 17:35 Lipase 109 U/L (73-393) 06/01/18 17:35 Home Medications: Duloxetine HCl [Cymbalta] 60 mg PO DAILY 08/08/13 Simvastatin 10 mg PO BEDTIME 08/08/13 Amlodipine Besylate 10 mg PO [id number] 08/02/16 LORazepam [Ativan*] 1 tab PO DAILY 06/02/18 Pantoprazole [Protonix Tab] 40 mg PO DAILY #30 tab 06/02/18 New Medications: Pantoprazole [Protonix Tab] 40 mg PO DAILY #30 tab Patient Discharge Instructions: 1. Patient will follow up with surgery as directed. Postop instructions to be given. Patient may shower in the morning. She is to keep Steri-Strips on at all times. 2. Patient presented with acute appendicitis. Patient seen and evaluated by surgery. Surgical intervention was required. Patient had laparoscopic appendectomy and lysis of adhesions. Patient did well post operatively. Patient able to tolerate GI soft diet. At discharge patient will continue with Cipro and Flagyl as recommended by surgery. Patient to continue with incentive spirometer. Patient will continue with surgical instructions. Patient to follow up with surgery within 1 week. No heavy lifting, pushing or pulling is recommended. 3. Patient with hypertension. At discharge patient will continue with Norvasc 10 mg daily. 4. Patient with hyperlipidemia. At discharge she will continue with her medication-Zocor 10 mg daily. 5. Patient with GERD and hiatal hernia noted on CT scan. At discharge she will continue with Protonix 40 mg 1 pill daily. Patient may benefit with GI evaluation in the future to further evaluate. 6. Patient with depression and anxiety. Patient will continue with her medication. Diet: Low sodium Activity: No lifting more than 10 lbs Followup: Tylor Harkins MD [ACTIVE - CAN ADMIT] - 1-2 Weeks Time spent managing pt's care (in minutes): 55
--- NOTE | 2018-06-02 12:58 | PN ---
Date of Progress Note: 06/02/2018 Subjective: The patient is awake, alert. No complaint. Objective: Vital Signs: Stable. Afebrile. Abdomen: Benign. Assessment: Status post laparoscopic appendectomy. Plan: The patient cleared from Surgery to discharge. Prescription for antibiotics and pain medicine given. Follow up in my office, and discharge instructions given. /MODL Voice ID: [id number] Report ID: [id number]
[2018-06-02 17:34] VITALS: BP 131/68; TEMP 98.8
[2018-06-02] MEDS ORDERED: ATORVASTATIN 10 MG TAB PO SCH (21:00)
[2018-06-03] MEDS ORDERED: AMLODIPINE 10 MG TAB PO SCH (06:00)
== END 2018-06-02 17:10 | disposition home or self-care (01) ==
LOC: ER 16:41 → ERHOLD 19:43 → 2ND 22:27
PROVIDERS: ADMIT Internal Medicine; ATTEND Internal Medicine
PROC: 0DTJ4ZZ Resection of Appendix, Percutaneous Endoscopic Approach (ICD-10-PCS; principal; 2018-06-01 21:00)
DX: K35.80 Unspecified acute appendicitis (principal); I10 Essential (primary) hypertension; E78.5 Hyperlipidemia, unspecified; E66.9 Obesity, unspecified; Z68.37 Body mass index [BMI] 37.0-37.9, adult; K21.9 Gastro-esophageal reflux disease without esophagitis; K44.9 Diaphragmatic hernia without obstruction or gangrene; F41.8 Other specified anxiety disorders
CPT/HCPCS: 96365; 96361; 93005; 85025 ×2; 80048 ×2; 36415; 83735; 81025; 84100; 85610; 80076; 88304; 85730; 81003; 83690; 74177; 71045; 96375; 99285; 44970; Q9967; J2704; J2710; J0330; J3010 ×2; J1100; J7030; J2405 ×2; J0744 ×2; G0378 ×2; J0694

== ENCOUNTER 2018-06-08 23:13 | Emergency (ER) | payer OTHER ==
--- OUTSIDE RECORDS SUMMARY | 2018-06-08 23:16 | XMS REPORT ---
:1950 Author Organization [facility] Address [address] [place] [address] Dr. Cervantes [address] [place] [id number] Care Team Providers Name Role Phone Unavailable Unavailable Unavailable Problems This patient has no known problems. Allergies, Adverse Reactions, Alerts This patient has no known allergies or adverse reactions. Medications This patient has no known medications.
[2018-06-08] MEDS ORDERED: NA CHLORIDE 0.9% 1,000 ML ONE (23:53)
[2018-06-09 00:04] LABS: Absolute Lymphocytes (CBC) 2.1 K/uL (0.7-4.9); Absolute Neutrophil 5.7 K/uL (1.8-8.0); Basophils % 0.7 % (0-1.3); Eosinophils % 2.2 % (0-4.4); MPV 8.7 fL (7.6-11.3); Monocytes % 10.7 % (3.3-12.3); RBC Red Blood Cell Count 4.49 M/uL (3.86-4.86)
[2018-06-09 00:20] LABS: Protime INR 0.99
[2018-06-09 00:40] LABS: ALT/SGPT 41 U/L (12-78); AST/SGOT 34 U/L (15-37); Albumin 3.4 g/dL (3.4-5.0); Alkaline Phosphatase 87 U/L (45-117); BUN Blood Urea Nitrogen 11 mg/dL (7-18); Bicarbonate 26 mmol/L (21-32); Bilirubin Direct 0.2 mg/dL (0-0.2); Bilirubin Total 0.6 mg/dL (0.2-1.0); Glucose Level 97 mg/dL (74-106); Lipase 115 U/L (73-393); NT PRO-BNP 80 pg/mL (<125); Potassium 3.3 mmol/L (3.5-5.1); Sodium Level 141 mmol/L (136-145); Troponin (Emerg Dept Use Only) < 0.02 ng/mL (0.0-0.045)
--- NOTE | 2018-06-09 00:57 | ER ---
Nurse's Notes [facility] Name: Cj Nash Age: 68 yrs Sex: Female : 1950 Arrival Date: 06/08/2018 Time: 23:24 Bed 8 Private MD: Diagnosis: Pain in left shoulder;Hypokalemia Presentation: 06/08 23:16 Presenting complaint: EMS states: Pt reports left shoulder pain that started while she ea was sitting in watching TV. Pt denies trauma to area, denies chest pain and SOB. Transition of care: patient was not received from another setting of care. Onset of symptoms was June 08, 2018. Risk Assessment: Do you want to hurt yourself or someone else? Patient reports no desire to harm self or others. Initial Sepsis Screen: Does the patient meet any 2 criteria? No. Patient's initial sepsis screen is negative. Does the patient have a suspected source of infection? No. Patient's initial sepsis screen is negative. Care prior to arrival: None. 23:16 Method Of Arrival: EMS ea 23:16 Acuity: SAMIR 3 ea Triage Assessment: 23:16 General: Appears in no apparent distress. Behavior is appropriate for age. Pain: ea Complains of pain in anterior aspect of left shoulder Pain does not radiate. Pain currently is 6 out of 10 on a pain scale. Quality of pain is described as aching, Aggravated by movement. Neuro: Level of Consciousness is awake, alert, obeys commands, Oriented to person, place, time, situation. Cardiovascular: Patient's skin is warm and dry. Cardiovascular: Denies chest pain, shortness of breath. Respiratory: Airway is patent Respiratory effort is even, unlabored, Respiratory pattern is regular, symmetrical. Derm: Skin is pink, warm \T\ dry. Historical: - Allergies: 23:35 Codeine; ea 23:35 Morphine; ea - Home Meds: 23:35 amlodipine 10 mg oral tab [Active]; lorazepam 0.5 mg Oral tab 1 tab 2 times per day for ea Anxiety [Active]; duloxetine 60 mg Oral cpDR 1 cap once daily [Active]; Cipro 500 mg Oral tab 1 tab every 12 hours [Active]; Flagyl 500 mg oral tab [Active]; - PMHx: 23:35 Hypertension; Hyperlipidemia; Anxiety; ea - PSHx: 23:35 Hysterectomy; Tubal ligation; Cholecystectomy; Appendectomy; ea - Immunization history:: Adult Immunizations up to date. - Social history:: Smoking status: Patient/guardian denies using tobacco. - Ebola Screening: : No symptoms or risks identified at this time. - Family history:: not pertinent. Screenin:37 Abuse screen: Denies threats or abuse. Nutritional screening: No deficits noted. ea Tuberculosis screening: No symptoms or risk factors identified. Fall Risk None identified. Assessment: 23:16 Reassessment: see triage assessment. ea 06/09 00:00 Reassessment: Patient and/or family updated on plan of care and expected duration. Pain ea level reassessed. Patient is alert, oriented x 3, equal unlabored respirations, skin warm/dry/pink. 01:00 Reassessment: Patient and/or family updated on plan of care and expected duration. Pain ea level reassessed. Patient is alert, oriented x 3, equal unlabored respirations, skin warm/dry/pink. 02:11 Reassessment: Patient and/or family updated on plan of care and expected duration. Pain ea level reassessed. Patient is alert, oriented x 3, equal unlabored respirations, skin warm/dry/pink. Discharge instructions given to patient, verbalized the understanding of instruction. Pt awaiting for call back from family for transportation. Patient states feeling better. 03:17 Reassessment: Patient and/or family updated on plan of care and expected duration. Pain ea level reassessed. Patient is alert, oriented x 3, equal unlabored respirations, skin warm/dry/pink. Awaiting on transportation. 03:59 Reassessment: Patient and/or family updated on plan of care and expected duration. Pain ea level reassessed. Patient is alert, oriented x 3, equal unlabored respirations, skin warm/dry/pink. Pt son contacted, reports he is on his way to pick pt up. Pt verbalized she wants to wait for son in the lobby. Pt ambulated to lobby, tolerated well. Awaiting on son to arrive Patient states feeling better. Vital Signs: 06/08 23:16 BP 151 / 81; Pulse 73; Resp 18; Temp 98.5; Pulse Ox 100% on R/A; Weight 90.72 kg; ea Height 5 ft. 2 in. (157.48 cm); Pain 7/10; 06/09 00:00 BP 122 / 49; Pulse 68; Resp 18; Pulse Ox 99% on R/A; ea 01:41 BP 131 / 50; Pulse 70; Resp 18; Pulse Ox 98% on R/A; ea 02:55 BP 128 / 52; Pulse 62; Resp 18; Pulse Ox 100% ; ea 03:50 BP 130 / 56; Pulse 68; Resp 18; Temp 98.7(O); Pulse Ox 99% ; ea 06/08 23:16 Body Mass Index 36.58 (90.72 kg, 157.48 cm) ea ED Course: 06/08 23:16 Arm band placed on right wrist. Patient placed in an exam room, on a stretcher, on ea pulse oximetry. 23:24 Patient arrived in ED. am2 23:26 Petrona Hardy, DELFINO is Primary Nurse. ea 23:26 Peyman Hutchison MD is Attending Physician. polina 23:28 Triage completed. ea 23:38 Patient has correct armband on for positive identification. Placed in gown. Bed in low ea position. Call light in reach. Side rails up X 1. 23:43 X-ray completed. Portable x-ray completed in exam room. Patient tolerated procedure sg4 well. 23:43 XRAY Chest (1 view) In Process Unspecified. EDMS 06/09 00:50 Shoulder Left (2 View) XRAY In Process Unspecified. EDMS 00:56 Emanuel Oviedo MD is Referral Physician. polina 01:38 No provider procedures requiring assistance completed. ea 02:13 IV discontinued, intact, bleeding controlled, No redness/swelling at site. Pressure ea dressing applied. Administered Medications: 01:00 Drug: NS 0.9% 1000 ml Route: IV; Rate: 125 ml/hr; Site: right antecubital; rr5 02:14 Follow up: Response: No adverse reaction; IV Status: Completed infusion; IV Intake: ea 300ml 01:00 Drug: Potassium Effervescent Tablet 25 mEq Route: PO; rr5 02:14 Follow up: Response: No adverse reaction ea Intake: 02:14 IV: 300ml; Total: 300ml. ea Outcome: 00:56 Discharge ordered by . polina 02:13 Condition: improved ea 02:13 Discharge instructions given to patient, Instructed on discharge instructions, follow up and referral plans. medication usage, Demonstrated understanding of instructions, follow-up care, medications, Prescriptions given X 2. 03:58 Discharged to [facility], awaiting on son to arrive ea 04:02 Patient left the ED. ea Signatures: Dispatcher [employer] Peyman Currie MD MD cha Moreno, Amanda am2 Petrona Hardy, RN RN Angela Cho sg4 Clint Rivero RN RN rr5
--- NOTE | 2018-06-09 00:57 | EDPHYS ---
Physician Documentation [facility] Name: Cj Nash Age: 68 yrs Sex: Female : 1950 Arrival Date: 06/08/2018 Time: 23:24 Bed 8 Private MD: ED Physician Peyman Hutchison HPI: 06/08 23:56 This 68 yrs old Female presents to ER via EMS with complaints of Shoulder Pain.polina 23:56 The patient or guardian complains of decreased range of motion, pain, that is acute. polina left shoulder. Context: The problem was sustained at an unknown site. Onset: The symptoms/episode began/occurred 2 day(s) ago. Modifying factors: the symptoms are alleviated by remaining still, The symptoms are aggravated by lifting weight, movement. Associated signs and symptoms: The patient has no apparent associated signs or symptoms. Severity of symptoms: At their worst the symptoms were mild, in the emergency department the symptoms are unchanged. Treatment prior to arrival includes: no previous treatment. The patient has not experienced similar symptoms in the past. Historical: - Allergies: 23:35 Codeine; ea 23:35 Morphine; ea - Home Meds: 23:35 amlodipine 10 mg oral tab [Active]; lorazepam 0.5 mg Oral tab 1 tab 2 times per day for ea Anxiety [Active]; duloxetine 60 mg Oral cpDR 1 cap once daily [Active]; Cipro 500 mg Oral tab 1 tab every 12 hours [Active]; Flagyl 500 mg oral tab [Active]; - PMHx: 23:35 Hypertension; Hyperlipidemia; Anxiety; ea - PSHx: 23:35 Hysterectomy; Tubal ligation; Cholecystectomy; Appendectomy; ea - Immunization history:: Adult Immunizations up to date. - Social history:: Smoking status: Patient/guardian denies using tobacco. - Ebola Screening: : No symptoms or risks identified at this time. - Family history:: not pertinent. ROS: 23:56 Constitutional: Negative for fever, chills, and weight loss, Eyes: Negative for injury, polina pain, redness, and discharge, ENT: Negative for injury, pain, and discharge, Neck: Negative for injury, pain, and swelling, Cardiovascular: Negative for chest pain, palpitations, and edema, Respiratory: Negative for shortness of breath, cough, wheezing, and pleuritic chest pain, Abdomen/GI: Negative for abdominal pain, nausea, vomiting, diarrhea, and constipation, Back: Negative for injury and pain, : Negative for injury, bleeding, discharge, and swelling, Skin: Negative for injury, rash, and discoloration, Neuro: Negative for headache, weakness, numbness, tingling, and seizure, Psych: Negative for depression, anxiety, suicide ideation, homicidal ideation, and hallucinations, Allergy/Immunology: Negative for hives, rash, and allergies, Endocrine: Negative for neck swelling, polydipsia, polyuria, polyphagia, and marked weight changes, Hematologic/Lymphatic: Negative for swollen nodes, abnormal bleeding, and unusual bruising. 23:56 MS/extremity: Positive for decreased range of motion, pain, of the anterior aspect of left shoulder and posterior aspect of left shoulder. Exam: 23:56 Constitutional: This is a well developed, well nourished patient who is awake, alert, polina and in no acute distress. Head/Face: Normocephalic, atraumatic. Eyes: Pupils equal round and reactive to light, extra-ocular motions intact. Lids and lashes normal. Conjunctiva and sclera are non-icteric and not injected. Cornea within normal limits. Periorbital areas with no swelling, redness, or edema. ENT: Nares patent. No nasal discharge, no septal abnormalities noted. Tympanic membranes are normal and external auditory canals are clear. Oropharynx with no redness, swelling, or masses, exudates, or evidence of obstruction, uvula midline. Mucous membranes moist. Neck: Trachea midline, no thyromegaly or masses palpated, and no cervical lymphadenopathy. Supple, full range of motion without nuchal rigidity, or vertebral point tenderness. No Meningismus. Chest/axilla: Normal chest wall appearance and motion. Nontender with no deformity. No lesions are appreciated. Cardiovascular: Regular rate and rhythm with a normal S1 and S2. No gallops, murmurs, or rubs. Normal PMI, no JVD. No pulse deficits. Respiratory: Lungs have equal breath sounds bilaterally, clear to auscultation and percussion. No rales, rhonchi or wheezes noted. No increased work of breathing, no retractions or nasal flaring. Abdomen/GI: Soft, non-tender, with normal bowel sounds. No distension or tympany. No guarding or rebound. No evidence of tenderness throughout. Back: No spinal tenderness. No costovertebral tenderness. Full range of motion. Skin: Warm, dry with normal turgor. Normal color with no rashes, no lesions, and no evidence of cellulitis. Neuro: Awake and alert, GCS 15, oriented to person, place, time, and situation. Cranial nerves II-XII grossly intact. Motor strength 5/5 in all extremities. Sensory grossly intact. Cerebellar exam normal. Normal gait. Psych: Awake, alert, with orientation to person, place and time. Behavior, mood, and affect are within normal limits. 23:56 Musculoskeletal/extremity: Extremities: decreased ROM, pain, noted in the anterior aspect of left shoulder and posterior aspect of left shoulder: decreased ROM, pain, ROM: limited active range of motion, limited passive range of motion, Circulation is intact in all extremities. Sensation intact. Compartment Syndrome exam of affected extremity: is normal. DVT Exam: no swelling, no tenderness, negative Homans' sign noted on exam, no appreciated bluish discoloration, no erythema, no increased warmth, pain. Vital Signs: 23:16 BP 151 / 81; Pulse 73; Resp 18; Temp 98.5; Pulse Ox 100% on R/A; Weight 90.72 kg; ea Height 5 ft. 2 in. (157.48 cm); Pain 7/10; 06/09 00:00 BP 122 / 49; Pulse 68; Resp 18; Pulse Ox 99% on R/A; ea 01:41 BP 131 / 50; Pulse 70; Resp 18; Pulse Ox 98% on R/A; ea 02:55 BP 128 / 52; Pulse 62; Resp 18; Pulse Ox 100% ; ea 03:50 BP 130 / 56; Pulse 68; Resp 18; Temp 98.7(O); Pulse Ox 99% ; ea 06/08 23:16 Body Mass Index 36.58 (90.72 kg, 157.48 cm) ea MDM: 06/08 23:27 Patient medically screened. [facility] 23:56 Data reviewed: vital signs, nurses notes, lab test result(s), EKG, radiologic studies, polina plain films. 06/08 23:28 Order name: Basic Metabolic Panel; Complete Time: 00:55 [facility] 06/08 23:28 Order name: CBC with Diff; Complete Time: 00:55 [facility] 06/08 23:28 Order name: LFT's; Complete Time: 00:55 [facility] 06/08 23:28 Order name: Magnesium; Complete Time: 00:55 [facility] 06/08 23:28 Order name: NT PRO-BNP; Complete Time: 00:55 [facility] 06/08 23:28 Order name: PT-INR; Complete Time: 00:55 [facility] 06/08 23:28 Order name: Troponin (emerg Dept Use Only); Complete Time: 00:55 [facility] 06/08 23:28 Order name: XRAY Chest (1 view) [facility] 06/08 23:28 Order name: Lipase; Complete Time: 00:55 [facility] 06/08 23:28 Order name: Urine Culture [facility] 06/08 23:56 Order name: Shoulder Left (2 View) XRAY [facility] 06/08 23:28 Order name: Cardiac monitoring; Complete Time: 01:15 [facility] 06/08 23:28 Order name: EKG - Nurse/Tech; Complete Time: 01:15 [facility] 06/08 23:28 Order name: IV Saline Lock; Complete Time: 01:16 [facility] 06/08 23:28 Order name: Labs collected and sent; Complete Time: 01:16 [facility] 06/08 23:28 Order name: O2 Per Protocol; Complete Time: 01:16 [facility] 06/08 23:28 Order name: O2 Sat Monitoring; Complete Time: 01:16 [facility] 06/08 23:28 Order name: Urine Dipstick-Ancillary (obtain specimen); Complete Time: 02:08 [facility] 06/08 23:58 Order name: Sling; Complete Time: 02:08 [facility] Administered Medications: 06/09 01:00 Drug: NS 0.9% 1000 ml Route: IV; Rate: 125 ml/hr; Site: right antecubital; rr5 02:14 Follow up: Response: No adverse reaction; IV Status: Completed infusion; IV Intake: ea 300ml 01:00 Drug: Potassium Effervescent Tablet 25 mEq Route: PO; rr5 02:14 Follow up: Response: No adverse reaction ea Disposition: 06/09/18 00:56 Discharged to Home. Impression: Pain in left shoulder, Hypokalemia. - Condition is Stable. - Discharge Instructions: Potassium Content of Foods, Musculoskeletal Pain, Shoulder Pain, Hypokalemia. - Prescriptions for Motrin IB 200 mg Oral Tablet - take 2 tablet by ORAL route every 6 hours As needed as needed with food; 26 tablet. Skelaxin 800 mg Oral Tablet - take 1 tablet by ORAL route every 8 hours As needed; 21 tablet. - Medication Reconciliation Form, Thank You Letter, Antibiotic Education, Prescription Opioid Use form. - Follow up: Private Physician; When: 2 - 3 days; Reason: Recheck today's complaints, Continuance of care, Re-evaluation by your physician. Follow up: Emanuel Oviedo; When: 2 - 3 days; Reason: Recheck today's complaints, Re-evaluation by your physician. - Problem is new. - Symptoms have improved. Signatures: Dispatcher [employer] EDMS Peyman Hutchison MD MD cha Antunez, Elena RN RN Clint Soria RN RN rr5 Corrections: (The following items were deleted from the chart) 04:02 00:56 06/09/2018 00:56 Discharged to Home. Impression: Pain in left shoulder; ea Hypokalemia. Condition is Stable. Discharge Instructions: Musculoskeletal Pain, Shoulder Pain. Prescriptions for Motrin IB 200 mg Oral Tablet - take 2 tablet by ORAL route every 6 hours As needed as needed with food; 26 tablet, Skelaxin 800 mg Oral Tablet - take 1 tablet by ORAL route every 8 hours As needed; 21 tablet. and Forms are Medication Reconciliation Form, Thank You Letter, Antibiotic Education, Prescription Opioid Use. Follow up: Private Physician; When: 2 - 3 days; Reason: Recheck today's complaints, Continuance of care, Re-evaluation by your physician. Follow up: Emanuel Oviedo; When: 2 - 3 days; Reason: Recheck today's complaints, Re-evaluation by your physician. Problem is new. Symptoms have improved. polina
[2018-06-09] MEDS ORDERED: POTASSIUM 25 MEQ EFFERV TAB ONE (01:13)
[2018-06-09 05:59] VITALS: TEMP 98.5
[2018-06-09 06:01] VITALS: BP 131/50; O2SAT 98
--- NOTE | 2018-06-09 10:19 | RAD REPORT ---
EXAM DESCRIPTION: RAD - Chest Single View - 06/08/2018 11:46 pm CLINICAL HISTORY: COUGH Chest pain. COMPARISON: Chest Single View dated 06/01/2018; Chest Single View dated 10/12/2017; Chest Single View d ated 02/11/2016; Chest Single View dated 09/22/2015 FINDINGS: Portable technique limits examination quality. The lungs are grossly clear. The heart is normal in size. No displaced fractures. IMPRESSION: No acute intrathoracic process suspected.
--- NOTE | 2018-06-09 10:27 | RAD REPORT ---
EXAM DESCRIPTION: RAD - Shoulder Left 2 View - 06/09/2018 12:50 am CLINICAL HISTORY: PAIN COMPARISON: No comparisons FINDINGS: Degenerative changes are present involving the glenohumeral and AC joint. Subacromial outl et narrowing is present likely indicating underlying rotator cuff pathology. No acute fracture or dis location seen.
== END 2018-06-09 04:02 | disposition home or self-care (01) ==
LOC: ER 23:13
DX: M25.512 Pain in left shoulder (principal); E87.6 Hypokalemia; I10 Essential (primary) hypertension; F41.9 Anxiety disorder, unspecified; E78.5 Hyperlipidemia, unspecified; Z88.5 Allergy status to narcotic agent
CPT/HCPCS: 87088; 85025; 87086; 80048; 36415; 83735; 85610; 80076; 84484; 83690; 83880; 71045; 73030; 96360; 99284; J7030

== ENCOUNTER 2019-10-09 11:22 | Inpatient (IN) | payer OTHER ==
--- OUTSIDE RECORDS SUMMARY | 2019-10-09 11:45 | XMS REPORT | Continuity of Care Document ---
:1950 Author Organization [facility] t Address [facility]3 [address] [place] [address] Care Team Providers Name Role Phone Unavailable Unavailable Unavailable Problems Condition Condition Condition Status Onset Resolution Last Treating Co mments Source Name Details Category Date Date Treatment Clinician Date Panic Panic Problem Active [facility] disorder [facility] - [episodic [episodic Ephraim andrew paroxysmal paroxysmal l anxiety] anxiety] Outpat i ent Clinics Depression Depression Problem Active [facility] with with [facility] - anxiety anxiety Memoria l Outpat[facility] ent Clinics Mixed Mixed Problem Active [facility] hyperlipid hyperlipid Mariola kes - emia emia [facility] l Out[facility] ent Clinics Body mass Body mass Diagnosis Active [facility] index index [facility] - (BMI) of (BMI) of Memori a 37.0-37.9 37.0-37.9 l in adult in adult Outpat i ent Clinics HTN, goal HTN, goal Diagnosis Active [facility] below below [facility] - 150/90 150/90 Memoria l Outpati ent Clinics Morbid Morbid Problem Active [facility] (severe) (severe) [facility] - obesity obesity Memoria due to due to l excess excess Outpati calories calories ent Clinics Current Current Diagnosis [facility] moderate moderate [facility] - episode of episode of Me moria major major l depressive depressive Ou tpati disorder disorder ent without without Clinics prior prior episode episode Generalize Generalize Diagnosis Active [facility] d anxiety d anxiety Luke s - disorder disorder Memori a l Outpati ent Clinics Hyperlipid Hyperlipid Problem Active [facility] emia, emia, [facility] - unspecifie unspecifie Me moria d d l hyperlipid hyperlipid Ou tpati emia type emia type ent Clinics Peripheral Peripheral Diagnosis Active [facility] polyneurop polyneurop Mariola kes - athy athy Memoria l Outpati ent Clinics Abnormal Abnormal Diagnosis Active [facility] mammogram mammogram Luke s - of left of left Memoria breast breast l Outpati ent Clinics Fatigue, Fatigue, Diagnosis Active [facility] unspecifie unspecifie Mariola kes - d type d type Memoria l [facility] Osteopenia Osteopenia Diagnosis Active [facility] of neck of of neck of Mariola kes - left femur left femur Me moria l [facility] Cyst of Cyst of Diagnosis Active [facility] left left [facility] - breast breast Memoria l [facility] Shortness Shortness Diagnosis Active [facility] of breath of breath ke s - Memoria [facility] Allergies, Adverse Reactions, Alerts Allergy Allergy Status Severity Reaction(s) Onset Inactive Treating Comm ents Source Name Type Date Date Clinician MORPHINE Adverse Active Info Not [facility] Reaction Available [facility] Medications Ordered Filled Start Stop Current Ordering Indication Dosage Frequency Signature Comments Components Source Medication Medication Date Date Medication? Clinician (SIG) Name Name Duloxetine Duloxetine Yes Frederick TAKE [address] [facility] [address] HCl HCl Plaza CAPSULE BY [facility] - MOUTH Memoria EVERY DAY l ONCE A DAY [place] [id number] ent [facility] Vitamin D Vitamin D Yes Frederick [address] [facility] BusPIRone BusPIRone Yes Frederick [address] [address] HCl HCl Plaza [facility] Amlodipine Amlodipine Yes Frederick take [address] [facility] Besylate Besylate Plaza tablet by [facility] - mouth [facility] daily once l a day [facility] BusPIRone BusPIRone Yes Frederick TAKE [address] HCl HCl Plaza TABLET BY [facility] DAY [facility] Vitamin C Vitamin C Yes Frederick as [facility] directed [facility] ent [facility] Stool Stool Yes Frederick [address] Softener Softener Plaza as needed [facility] ent [facility] Fish Oil Fish Oil Yes Frederick [address] [facility] Simvastatin Simvastatin Yes Frederick [address] [facility] in the [facility] - evening [facility] Duloxetine Duloxetine Yes Frederick take [address] [facility] [address] HCl HCl Plaza capsule by [facility] - mouth Memoria every day [facility] Simvastatin Simvastatin Yes Frederick TAKE [address] [facility] TABLET BY [facility] - MOUTH Memoria EVERY DAY l IN THE [facility] ent Clinics Immunizations Ordered Filled Immunization Date Status Comments Sour e Immunization Name Name Josue Salas 2018-12-[address] [facility] 00[facility]00 [facility] Outpatient Clinics Procedures This patient has no known procedures. Encounters Start End Encounter Admission Attending Care Care Encounter Source Date/Time Date/Time Type Type Clinicians Facility Department ID 2019-09-12 2019-09-12 [facility] [id number] [address] 13:15[facility]00 13:15:[email or web address] [facility] Medicine Medicine Outpati ent Clinics 2019-09-03 2019-09-03 [facility] [id number] [address] 11:37:00 11:37:00 [facility] [email or web address] [facility] l Medicine Outpati ent Clinics 2019-08-16 2019-08-16 [facility] [id number] [address] 09:01:00 09:01:00 [facility] Medicine Outpati ent Clinics 2019-07-29 2019-07-29 [facility] [id number] 15:58:00 15:58:[email or web address] [facility] Medicine Medicine Outpati ent Clinics 2019-05-08 2019-05-08 [facility] [id number] [facility] 13[facility]00[facility]00 13:00:00 [facility] Medicine Outpati ent Clinics 2019-03-01 2019-03-01 [facility] [id number] [address] 08:19:00 08:19:[address] [facility] Medicine Medicine Outpati ent Clinics 2019-02-20 2019-02-20 [facility] [id number] [address] 08:23:00 08:23:00 [facility] [email or web address] [facility] Medicine Outpati ent Clinics 2019-02-04 2019-02-04 [facility] [id number] [address] 15:13:00 15:13:00 [facility] Medicine Outpati ent Clinics 2019-02-04 2019-02-04 [facility] [id number] [address] 14:00:00 14:00:00 [email or web address] [facility] Outpati ent Clinics 2019-01-30 2019-01-30 [facility] [id number] 08:24:00 08:24:00 [facility] Outpati ent Clinics 2019-01-28 2019-01-28 [facility] [id number] 09:13:00 09:13:00 [facility] Outpati ent Clinics 2018-12-05 2018-12-05 [facility] [id number] [address] 14:00:00 14:00:00 [facility] Clin[facility] Results This patient has no known results.
--- OUTSIDE RECORDS SUMMARY | 2019-10-09 11:45 | XMS REPORT ---
:1950 Author Organization [employer] Care Team Providers Name Role Phone PlzaaFrederick Provider Role Unavailable Allergies No Known Allergies Problems Problem Type Condition Code Onset Dates Condition Statu s Problem Depression with anxiety F41.8 Acti ve Problem Current moderate episode of major F32.1 Active depressive disorder without prior episode Problem Generalized anxiety disorder F41.1 Active Assessment Abnormal mammogram of left breast R92.8 Active Problem Panic disorder [episodic paroxysmal F41.0 Active anxiety] Problem Mixed hyperlipidemia E78.2 Active Problem Abnormal mammogram of left breast R92.8 Active Problem Body mass index (BMI) of 37.0-37.9 Z68.37 Active in adult Problem Abnormal mammogram R92.8 Active Problem Hyperlipidemia, unspecified E78.5 Active hyperlipidemia type Problem Peripheral polyneuropathy G62.9 Ac tive Problem Morbid (severe) obesity due to E66.01 Active excess calories Problem HTN, goal below 150/90 I10 Activ e Medications No Known Medications Results No Known Results Summary Purpose [employer] Submission
--- OUTSIDE RECORDS SUMMARY | 2019-10-09 11:45 | XMS REPORT ---
:1950 Author Organization [employer] Care Team Providers Name Role Phone Frederick Plaza Provider Role Unavailable Allergies No Known Allergies Problems Problem Type Condition Code Onset Dates Condition Statu s Problem Depression with anxiety F41.8 Acti ve Problem Current moderate episode of major F32.1 Active depressive disorder without prior episode Problem Generalized anxiety disorder F41.1 Active Problem Panic disorder [episodic paroxysmal F41.0 [...] Medications Results No Known Results Summary Purpose [place] [employer] Submission
--- OUTSIDE RECORDS SUMMARY | 2019-10-09 11:45 | XMS REPORT ---
:1950 Author Organization [employer] Care Team Providers Name Role Phone Bola Frederick Provider Role Unavailable Allergies No Known Allergies [...] goal below 150/90 I10 Activ e Medications Medication Code Code Instructions Start End Status Dosage System Date Date Duloxetine HCl [facility] 96114239696 60 MG Orally Active TAKE 1 Once a day CAPSULE BY MOUTH EVERY DAY ONCE A DAY ORAL 30 Results No Known Results Summary Purpose [employer]Works Submission
--- OUTSIDE RECORDS SUMMARY | 2019-10-09 11:46 | XMS REPORT ---
:1950 Author Organization [employer] Care Team Providers Name Role Phone Frederick Plaza Provider Role Unavailable Allergies, Adverse Reactions, Alerts Substance Reaction Event Type MORPHINE Info Not Available Drug Allergy Problems Problem Type Condition Code Onset Dates Condition Statu s Problem Depression with anxiety F41.8 Acti ve Problem Current moderate episode of major F32.1 Active depressive disorder without prior episode Problem Generalized anxiety disorder F41.1 Active Problem Abnormal mammogram of left breast R92.8 Active Assessment Morbid (severe) obesity due to E66.01 Active excess calories Problem Body mass index (BMI) of 37.0-37.9 Z68.37 Active in adult Assessment Body mass index (BMI) of 37.0-37.9 Z68.37 Active in adult Assessment Fatigue, unspecified type R53.83 Ac tive Problem Abnormal mammogram R92.8 Active Problem Hyperlipidemia, unspecified E78.5 Active hyperlipidemia type Problem Peripheral polyneuropathy G62.9 Ac tive Problem Morbid (severe) obesity due to E66.01 Active excess calories Problem HTN, goal below 150/90 I10 Activ e Assessment HTN, goal below 150/90 I10 Activ e Assessment Osteopenia of neck of left femur M85.852 Active Assessment Peripheral polyneuropathy G62.9 Ac tive Assessment Mixed hyperlipidemia E78.2 Active Assessment Panic disorder [episodic paroxysmal F41.0 Active anxiety] Assessment Cyst of left breast N60.02 Active Assessment Abnormal mammogram of left breast R92.8 Active Assessment Current moderate episode of major F32.1 Active depressive disorder without prior episode Problem Panic disorder [episodic paroxysmal F41.0 Active anxiety] Assessment Shortness of breath R06.02 Active Assessment Generalized anxiety disorder F41.1 Active Problem Mixed hyperlipidemia E78.2 Active Medications Medication Code Code Instructions Start End Status Dosage System Date Date Vitamin D [facility] [address] 400 UNIT Orally Active 1 capsule Once a day BusPIRone HCl [facility] 41712250477 15 MG Orally Active 1 tablet Twice a day Amlodipine [facility] 91852922965 10 MG Oral Once Active t nito 1 Besylate a day tablet by mouth daily once a day BusPIRone HCl [facility] 51075727142 10 MG Active TAKE 1 TABLET BY MOUTH TWICE A DAY Vitamin C [facility] 20146045499 500 MG Orally Active as d irected Duloxetine HCl [facility] 52382199270 60 MG Orally Active TAKE 1 Once a day CAPSULE BY MOUTH EVERY DAY ONCE A DAY ORAL 30 Stool Softener [facility] 86904959539 100 MG Orally Active 1 capsule Once a day as needed Fish Oil [facility] [address]-86 300 MG Orally Active 1 c apsule Twice a day Simvastatin [facility] 88701640791 20 MG Orally Active 1 t ablet in Once a day the evening Duloxetine HCl [facility] 90033703554 60 MG Oral Once Activ e take 1 a day capsule by mouth every day Simvastatin [facility] 71977864634 20 MG Active TAKE 1 TABLET BY MOUTH EVERY DAY IN THE EVENING Results No Known Results Summary Purpose eClinicalWorks Submission
[2019-10-09 12:33] LABS: Absolute Lymphocytes (CBC) 0.8 K/uL (0.7-4.9); Basophils % 0.3 % (0-1.3); Hematocrit 41.9 % (36.0-45.0); Lymphocytes % 10.9 % (15.3-44.8); MPV 8.6 fL (7.6-11.3); RBC Red Blood Cell Count 4.47 M/uL (3.86-4.86)
[2019-10-09 12:38] LABS: Protime INR 0.96
[2019-10-09 12:50] LABS: ALT/SGPT 30 U/L (12-78); AST/SGOT 29 U/L (15-37); Alkaline Phosphatase 87 U/L (45-117); BUN Blood Urea Nitrogen 12 mg/dL (7-18); Bicarbonate 27 mmol/L (21-32); Bilirubin Direct 0.2 mg/dL (0-0.2); Bilirubin Total 0.6 mg/dL (0.2-1.0); Glucose Level 99 mg/dL (74-106); Magnesium 2.2 mg/dL (1.8-2.4); NT PRO-BNP 98 pg/mL (<125); Potassium 3.8 mmol/L (3.5-5.1); Sodium Level 141 mmol/L (136-145); Troponin (Emerg Dept Use Only) < 0.02 ng/mL (0.0-0.045)
--- NOTE | 2019-10-09 12:58 | RAD REPORT ---
EXAM DESCRIPTION: RAD - Chest Single View - 10/09/2019 12:29 pm CLINICAL HISTORY: Cough;SOB COMPARISON: Two view chest September 26 TECHNIQUE: AP portable chest image was obtained 10/09/2019 12:29 pm . FINDINGS: Lung volumes are low compared to prior study. Patchy airspace opacification is scattered i n the lung pineda worse on the right. This is mostly a peripheral distribution. There is vascular eng orgement and prominence of the central lung markings as well. Cardiac silhouette is enlarged. Trachea is midline. The September 26 is a preop examination pending catheterization procedure. Is unknown if this was a cardia c catheterization for symptoms or other vascular assessment. No measurable pleural effusion and no pneumothorax. No acute bony abnormality seen. No acute aortic f indings suspected. IMPRESSION: Patchy alveolar opacification present along with increased interstitial opacification. Mild cardiomegaly and vascular engorgement. Patient apparently recently had a catheterization procedure. This could indicate some underlying hear t disease. Chest findings can be explained as a volume overload/ failure pattern. In the current clinical environment, the patchy airspace opacities do raise concern for a COVID-19 pn eumonia. Correlation is needed with clinical presentation and any COVID testing results.
[2019-10-09] MEDS ORDERED: METHYLPREDNISOLONE 125 MG INJ ONE (13:29)
[2019-10-09] MEDS ORDERED: AZITHROMYCIN 250 MG TAB ONE (13:29)
[2019-10-09] MEDS ORDERED: CEFTRIAXONE/SWI 1gm 1 GM/10 ML SYR ONE (13:30)
--- NOTE | 2019-10-09 13:37 | ER ---
Nurse's Notes [facility] Name: Cj Nash Age: 69 yrs Sex: Female : 1950 Arrival Date: 10/09/2019 Time: 11:28 Bed 8 Private MD: Diagnosis: Hypoxemia;Pneumonia due to other specified infectious organisms Presentation: 10/08 11:28 Chief complaint: EMS states: Cough and weakness for a few days now. Son and daughter-in jl7 law are positive for COVID-19. Coronavirus screen: Patient reports a cough. Patient reports shortness of breath or difficulty breathing. Patient denies measured and/or subjective temperature greater than 100.4F prior to today's visit. Patient denies travel on a cruise ship or to a country the [facility]NOTE [facility]] currently lists as an affected area. Patient reports contact with known and/or suspected case of COVID-19. Patient instructed to continue to wear a mask when interacting with others. Patient moved to private room, placed in contact and droplet isolation with eye protection until further assessment. Ebola Screen: No symptoms or risks identified at this time. Initial Sepsis Screen: Does the patient meet any 2 criteria? No. Patient's initial sepsis screen is negative. Does the patient have a suspected source of infection? No. Patient's initial sepsis screen is negative. Risk Assessment: Do you want to hurt yourself or someone else? Patient reports no desire to harm self or others. Onset of symptoms was September 28, 2019. Care prior to arrival: None. Transition of care: patient was not received from another setting of care. 11:28 Method Of Arrival: EMS: [place] [id number] 11:28 Acuity: SAMIR 3 jl7 Triage Assessment: 11:34 General: Appears in no apparent distress. uncomfortable, Behavior is calm, cooperative, jl7 appropriate for age. Pain: Denies pain. EENT: No deficits noted. Neuro: Level of Consciousness is awake, alert, obeys commands, Oriented to person, place, time, situation. Cardiovascular: Patient's skin is warm and dry. Chest pain is denied. Respiratory: Reports cough that is non-productive, Airway is patent Respiratory effort is even, unlabored, Respiratory pattern is regular, symmetrical. GI: No signs and/or symptoms were reported involving the gastrointestinal system. : No signs and/or symptoms were reported regarding the genitourinary system. Derm: Skin is pink, warm \T\ dry. Historical: - Allergies: 11:34 Codeine; jl7 11:34 Morphine; jl7 - Home Meds: 11:34 amlodipine 10 mg tab [Active]; duloxetine 60 mg Oral cpDR 1 cap once daily [Active]; jl7 BuSpar Oral [Active]; Simvastatin Oral [Active]; - PMHx: 11:34 Anxiety; Hyperlipidemia; Hypertension; jl7 - PSHx: 11:34 Hysterectomy; Tubal ligation; Cholecystectomy; Appendectomy; jl7 - Immunization history:: Adult Immunizations unknown. - Social history:: Smoking status: Patient denies any tobacco usage or history of. Screenin:33 Abuse screen: Denies threats or abuse. Denies injuries from another. Nutritional jl7 screening: No deficits noted. Tuberculosis screening: No symptoms or risk factors identified. Fall Risk IV access (20 points). Total Rivero Fall Scale indicates No Risk (0-24 pts). Vital Signs: 11:28 BP 137 / 82; Pulse 75; Resp 19 S; Temp 98.8(O); Pulse Ox 95% on R/A; Weight 90.72 kg jl7 (R); Height 5 ft. 0 in. (152.40 cm) (R); 12:32 BP 131 / 75; Pulse 71; Resp 16; Pulse Ox 95% ; jl7 11:28 Body Mass Index 39.06 (90.72 kg, 152.40 cm) jl7 ED Course: 11:28 Patient arrived in ED. jl7 11:31 Triage completed. jl7 11:33 Peyman Millard PA is PHCP. cp 11:33 Jonh Solano MD is Attending Physician. cp 11:34 Arm band placed on right wrist. jl7 12:04 Palmer Rodrigez RN is Primary Nurse. jl7 12:08 Inserted saline lock: 20 gauge in right wrist, using aseptic technique. Blood collected.jl7 12:08 Initial lab(s) drawn, by me, sent to lab. First set of blood cultures drawn by me, EKG jl7 done, by ED staff, reviewed by Peyman LAI Flu and/or RSV swab sent to lab. Strep swab sent to lab. COVID-19 swab sent to lab. 12:13 Second set of blood cultures drawn. jl7 12:29 XRAY Chest (1 view) In Process Unspecified. EDMS 12:33 Patient has correct armband on for positive identification. Placed in gown. Bed in low jl7 position. Call light in reach. Side rails up X2. bus monitor on. Pulse ox on. NIBP on. Warm blanket given. 13:35 Harris Jacob MD is Hospitalizing Provider. cp 14:45 No provider procedures requiring assistance completed. Patient admitted, IV remains in jl7 place. intact, No redness/swelling at site. Administered Medications: 13:34 Drug: Rocephin 1 grams Route: IV; Rate: calculated rate; Site: right wrist; jl7 13:37 Follow up: Response: No adverse reaction; IV Status: Completed infusion jl7 13:34 Drug: SOLU-Medrol 60 mg {Note: administered 80 mg IVP per JOELLE Kim.} Route: IVP; jl7 Site: right wrist; 13:50 Follow up: Response: No adverse reaction jl7 13:34 Drug: Zithromax 500 mg Route: PO; jl7 14:32 Follow up: Response: No adverse reaction jl7 Outcome: 13:36 Decision to Hospitalize by Provider. cp 14:45 Admitted to Tele accompanied by tech, via wheelchair, room 431, with chart, Report jl7 called to DELFINO Rahman 14:45 Condition: stable 14:45 Discharge instructions given to patient, Instructed on the need for admit, Demonstrated understanding of instructions. 15:07 Patient left the ED. jl7 Signatures: Dispatcher [employer] EDDE Peyman Millard PA PA cp Leal, Jahala RN RN jl7
--- NOTE | 2019-10-09 13:37 | EDPHYS ---
Physician Documentation [facility] Name: Cj Nash Age: 69 yrs Sex: Female : 1950 Arrival Date: 10/09/2019 Time: 11:28 Bed 8 Private MD: ED Physician Jonh Solano HPI: 10/08 11:45 This 69 yrs old Female presents to ER via EMS with complaints of cp Non-Productive Cough. 11:45 The patient or guardian reports cough, that is constant, with no sputum, difficulty cp breathing. Onset: The symptoms/episode began/occurred September 28, 2019 with improving initially and now worse. Associated signs and symptoms: Pertinent positives: nausea, vomiting, Pertinent negatives: chest pain, fever, abdominal pain. Patient reports son and daughter in-law tested positive for COVID-19 and that she was tested on September 26 with her results being negative. Patient reports cough started the next day. Historical: - Allergies: 11:34 Codeine; jl7 11:34 Morphine; jl7 - Home Meds: 11:34 amlodipine 10 mg tab [Active]; duloxetine 60 mg Oral cpDR 1 cap once daily [Active]; jl7 BuSpar Oral [Active]; Simvastatin Oral [Active]; - PMHx: 11:34 Anxiety; Hyperlipidemia; Hypertension; jl7 - PSHx: 11:34 Hysterectomy; Tubal ligation; Cholecystectomy; Appendectomy; jl7 - Immunization history:: Adult Immunizations unknown. - Social history:: Smoking status: Patient denies any tobacco usage or history of. ROS: 11:50 Constitutional: Negative for fever, poor PO intake. cp 11:50 Eyes: Negative for injury, pain, redness, and discharge. cp 11:50 ENT: Negative for ear pain, difficulty swallowing, difficulty handling secretions. 11:50 Cardiovascular: Negative for chest pain, edema, palpitations. 11:50 Respiratory: Positive for cough, "sounds productive", shortness of breath, Negative for wheezing. 11:50 Abdomen/GI: Positive for nausea, Negative for abdominal pain, diarrhea, constipation, active vomiting. 11:50 Neuro: Positive for general weakness, Negative for altered mental status, headache. 11:50 All other systems are negative. Exam: 11:55 Constitutional: The patient appears in no acute distress, alert, awake, cp non-diaphoretic, non-toxic, well developed, well nourished. 11:55 Head/Face: Normocephalic, atraumatic. cp 11:55 Eyes: Periorbital structures: appear normal, Conjunctiva: normal, no exudate, no injection, Sclera: no appreciated abnormality, Lids and lashes: appear normal, bilaterally. 11:55 ENT: External ear(s): are unremarkable, Ear canal(s): are normal, clear, TM's: bulging, is not appreciated, bilaterally, dullness, bilaterally, erythema, is not appreciated, bilaterally, Nose: is normal, Mouth: Lips: moist, Oral mucosa: moist, Posterior pharynx: is normal, airway is patent, no erythema, no exudate. 11:55 Neck: ROM/movement: is normal, is supple, no meningismus, no nuchal rigidity. 11:55 Chest/axilla: Inspection: normal, Palpation: is normal, no crepitus, no tenderness. 11:55 Cardiovascular: Rate: normal, Rhythm: regular, Edema: is not appreciated, JVD: is not appreciated. 11:55 Respiratory: the patient does not display signs of respiratory distress, Respirations: labored breathing, that is mild, accessory muscle usage, is absent, intercostal retractions, are absent, shallow respirations, that is mild, Breath sounds: bronchial sounds, that are mild, are heard diffusely, decreased breath sounds, are not appreciated, stridor, is not appreciated, wheezing: is not appreciated. 11:55 Abdomen/GI: Inspection: abdomen appears normal, Bowel sounds: active, all quadrants, Palpation: abdomen is soft and non-tender, in all quadrants. 11:55 Back: pain, is absent, ROM is normal. 11:55 Skin: no rash present. 11:55 Neuro: Orientation: to person, place \\T\\ time. Mentation: is normal, Cerebellar function: is grossly normal, Motor: moves all fours, strength is normal, Sensation: is normal. 17:52 ECG was reviewed by the Attending Physician. kdr Vital Signs: 11:28 BP 137 / 82; Pulse 75; Resp 19 S; Temp 98.8(O); Pulse Ox 95% on R/A; Weight 90.72 kg jl7 (R); Height 5 ft. 0 in. (152.40 cm) (R); 12:32 BP 131 / 75; Pulse 71; Resp 16; Pulse Ox 95% ; jl7 11:28 Body Mass Index 39.06 (90.72 kg, 152.40 cm) jl7 MDM: 11:47 Patient medically screened. cp 12:00 Differential Diagnosis: Bronchitis Influenza Viral Syndrome Pneumonia Other sepsis. cp 13:05 Data reviewed: vital signs, nurses notes, lab test result(s), radiologic studies, plain cp films. 13:40 Physician consultation: Harris Jacob MD was called at 13:35, was contacted at 13:35, cp regarding admission, to the telemetry unit. patient's condition. 13:40 Counseling: I had a detailed discussion with the patient and/or guardian regarding: the cp historical points, exam findings, and any diagnostic results supporting the discharge/admit diagnosis, lab results, radiology results, the need for further work-up and treatment in the hospital. 13:40 Response to treatment: the patient's symptoms have markedly improved after treatment, and as a result, I will admit patient. 10/08 11:35 Order name: Basic Metabolic Panel; Complete Time: 13:00 cp 10/08 11:35 Order name: CBC with Diff; Complete Time: 13:00 10/08 11:35 Order name: LFT's; Complete Time: 13:00 10/08 11:35 Order name: Magnesium; Complete Time: 13:00 10/08 11:35 Order name: NT PRO-BNP; Complete Time: 13:00 10/08 11:35 Order name: PT-INR; Complete Time: 13:00 10/08 11:35 Order name: Troponin (emerg Dept Use Only); Complete Time: 13:00 cp 10/08 11:35 Order name: Procalcitonin; Complete Time: 13:04 10/08 11:35 Order name: Lactate; Complete Time: 13:00 10/08 11:35 Order name: Blood Culture Adult (2) 10/08 11:35 Order name: COVID-19 10/08 11:35 Order name: Flu 10/08 11:35 Order name: Strep 10/08 13:42 Order name: Throat Culture EDMS 10/08 11:35 Order name: XRAY Chest (1 view); Complete Time: 13:00 10/08 11:35 Order name: EKG; Complete Time: 11:36 10/08 11:35 Order name: Cardiac monitoring; Complete Time: 11:37 10/08 11:35 Order name: EKG - Nurse/Tech; Complete Time: 12:29 10/08 11:35 Order name: IV Saline Lock; Complete Time: 12:29 10/08 11:35 Order name: Labs collected and sent; Complete Time: 12:29 10/08 11:35 Order name: O2 Per Protocol; Complete Time: 11:37 10/08 11:35 Order name: O2 Sat Monitoring; Complete Time: 11:37 10/08 11:35 Order name: Droplet/Contact Precautions; Complete Time: 12:29 10/08 13:50 Order name: Heart Healthy [facility] 10/08 13:50 Order name: Troponin I [facility] 10/08 13:50 Order name: Troponin I [facility] 10/08 13:03 Order name: PO challenge; Complete Time: 13:13 cp EC:52 Rate is 70 beats/min. Rhythm is regular, Normal Sinus Rhythm with No ectopy. QRS Bimble kdr is Normal. Left axis deviation noted. IA interval is normal. QRS interval is normal. QT interval is normal. No Q waves. Clinical impression: NSR w/ Non-specific ST/T Changes. Administered Medications: 13:34 Drug: Rocephin 1 grams Route: IV; Rate: calculated rate; Site: right wrist; jl7 13:37 Follow up: Response: No adverse reaction; IV Status: Completed infusion jl7 13:34 Drug: SOLU-Medrol 60 mg {Note: administered 80 mg IVP per PA. Julio} Route: IVP; jl7 Site: right wrist; 13:50 Follow up: Response: No adverse reaction jl7 13:34 Drug: Zithromax 500 mg Route: PO; jl7 14:32 Follow up: Response: No adverse reaction jl7 Disposition: 17:24 Co-signature as Attending Physician, Jonh Solano MD I agree with the assessment and kdr plan of care. Disposition: 10/09/19 13:36 Hospitalization ordered by Harris Jacob for Inpatient Admission. Preliminary diagnosis are Hypoxemia, Pneumonia due to other specified infectious organisms. - Bed requested for Telemetry/MedSurg (Inpatient). - Status is Inpatient Admission. jl7 - Condition is Stable. - Problem is new. - Symptoms have improved. Signatures: Dispatcher [employer] EDAicha Maki, RN RN Jonh Solano MD MD [facility] Peyman Millard PA PA cp Leal, Jahala, RN RN jl7 Corrections: (The following items were deleted from the chart) 14:23 13:36 Hospitalization Ordered by Harris Jacob MD for Inpatient Admission. Preliminary diagnosis is Hypoxemia; Pneumonia due to other specified infectious organisms. Bed requested for Telemetry/MedSurg (Inpatient). Status is Inpatient Admission. Condition is Stable. Problem is new. Symptoms have improved. 15:07 14:23 10/09/2019 13:36 Hospitalization Ordered by Harris Jacob MD for Inpatient jl7 Admission. Preliminary diagnosis is Hypoxemia; Pneumonia due to other specified infectious organisms. Bed requested for Telemetry/MedSurg (Inpatient). Status is Inpatient Admission. Condition is Stable. Problem is new. Symptoms have improved.
[2019-10-09] MEDS ORDERED: ONDANSETRON 4 MG/2 ML VIAL IV PRN (13:46)
--- NOTE | 2019-10-09 13:51 | P.HP ---
Certification for Inpatient Patient admitted to: Inpatient With expected LOS: >2 Midnights Practitioner: I am a practitioner with admitting privileges, knowledge of patient current condition, hospital course, and medical plan of care. Services: Services provided to patient in accordance with Admission requirements found in Title 42 Section 412.3 of the Code of Federal Regulations Patient History Date of Service: 10/09/19 Reason for admission: Cough , shortness of breath History of Present Illness: 69 yrs old Female with past medical history of hypertension, hyperlipidemia, anxiety, vitamin-D deficient came with a history of cough associated with some shortness of breath which has been going on for the last 3 days and has been progressively worsening and was brought to ER. She also has associated nausea and vomiting. Also complains of abdominal pain diffuse. Denies any fever or chills. Cough is productive with mucoid expectoration. No hemoptysis Patient reports son and daughter in-law tested positive for COVID-19 and that she was tested on September 26 with her results being negative. Patient was assessed in the ER and was found to have possible pneumonitis and was admitted for further management Allergies codeine [Codeine] Allergy (Intermediate, Verified 08/02/16 10:35) Itching/Hives/Rash morphine Adverse Reaction (Verified 08/02/16 10:36) hallucinations Home medications list reviewed: Yes Home Medications: Duloxetine HCl [Cymbalta] 60 mg PO DAILY 08/08/13 Simvastatin 20 mg PO BEDTIME 08/08/13 Amlodipine Besylate 10 mg PO [id number] 08/02/16 Buspirone HCl 1 tab PO BID 10/09/19 - Past Medical/Surgical History Diabetic: No Past Medical History: Reviewed- Non-Contributory -: Hypertension -: Anxiety -: Hyperlipidemia -: Anxiety -: Vitamin D deficiency Past Surgical History: Reviewed- Non-Contributory -: tubal 1972 -: hysterectomy 33 yrs ago -: cholecystectomy 10 yrs ago Psychosocial/ Personal History: , 7 children, She does not work. - Family History Father -: Heart disease Mother -: Hypertension, Cancer Notes: mother had colon cancer - Social History Smoking Status: Never smoker Alcohol use: No CD- Drugs: No Caffeine use: No Review of Systems 10-point ROS is otherwise unremarkable Physical Examination - Vital Signs Temperature: 98.8 F Blood Pressure: 137/82 Pulse: 76 Respirations: 18 - Physical Exam General: Alert, In no apparent distress HEENT: Atraumatic, Normocephalic Neck: Supple Respiratory: Diminished, Crackles/rales Cardiovascular: Regular rate/rhythm, Normal S1 S2 Capillary refill: <2 Seconds Gastrointestinal: Soft and benign, W/out hepatosplenomegaly Musculoskeletal: No clubbing, No swelling Integumentary: No rashes Neurological: Normal speech, Normal strength at 5/5 x4 extr Lymphatics: No axilla or inguinal lymphadenopathy - Studies Laboratory Data (last 24 hrs) 10/09/19 12:13: PT 11.5, INR 0.96 10/09/19 12:13: WBC 7.7, Hgb 14.2, Hct 41.9, Plt Count 238 10/09/19 12:13: Sodium 141, Potassium 3.8, BUN 12, Creatinine 0.63, Glucose 99, Magnesium 2.2, Total Bilirubin 0.6, AST 29, ALT 30, Alkaline Phosphatase 87 Microbiology Data (last 24 hrs): 10/09/19 12:13 Throat Group A Streptococcus Rapid Screen - Final 10/09/19 12:13 Nasopharnyx Influenza Type A Antigen Screen - Final 10/09/19 12:13 Nasopharnyx Influenza Type B Antigen Screen - Final Assessment and Plan - Advance Directives Does patient have a Living Will: No Does patient have a Durable POA for Healthcare: No Physician Review Additional Text: Possible COVID 19 Pneumonia Hypertension Hyperlipidemia Anxiety Plan Monitor under telemetry Will get COVID 19 test Cultures Was start on empirical antibiotics Will get a CT of the chest Start on Solu-Medrol Full anticoagulation Oxygen supplementation Continue home medications and titrate as needed GI/DVT prophylaxis Advanced directives full code Time Spent Managing Pts Care (In Minutes): 42
[2019-10-09 15:19] VITALS: BMI 39.0
[2019-10-09 17:10] LABS: Urine Appearance CLOUDY; Urine Bilirubin NEGATIVE (NEG); Urine Blood NEGATIVE (NEG); Urine Color YELLOW; Urine Glucose NEGATIVE (NEG); Urine Protein 1+ (NEG)
[2019-10-09 17:16] LABS: Urine Microscopic Reflex ORDER UMIC
[2019-10-09 17:28] LABS: Urine Bacteria <20 /HPF (<20); Urine Culture Reflex Order NOT NEEDED; Urine RBC <5 /HPF (NONE SEEN)
[2019-10-09] MEDS: ACETAMINOPHEN 500 MG TAB PO PRN (18:55)
--- NOTE | 2019-10-09 19:54 | RAD REPORT ---
EXAM DESCRIPTION: CT - Thorax Wo Con - 10/09/2019 7:14 pm CLINICAL HISTORY: PNA COMPARISON: Chest For Pe Angio dated 02/11/2016; Chest Single View dated 10/09/2019; Chest Pa And Lat (2 Views) dated 09/27/2019 TECHNIQUE: Axial 5 mm thick images of the chest were obtained without IV contrast. All CT scans are performed using dose optimization technique as appropriate and may include automated exposure control or mA/KV adjustment according to patient size. FINDINGS: Ground-glass opacification is seen in the lung pineda predominantly in a peripheral distri bution. No focal area of more dense consolidation. No underlying mass lesion identified. There are no endobronchial lesions seen. No pleural thickening or pleural effusion. No pneumothorax. No abnormal mediastinal or hilar masses or lymphadenopathy seen. No gross aortic or pulmonary artery finding suspected. Assessment is limited in the absence of IV contrast. No chest wall mass or abnormal axillary lymphadenopathy. IMPRESSION: Bilateral, predominately peripheral ground-glass opacification of the lung pineda. This pattern is a well described COVID-19 pneumonia pattern. Correlation is needed with deleon mark carrington.
[2019-10-09] MEDS: ASCORBIC ACID 500 MG TABLET PO SCH (20:49)
[2019-10-09] MEDS: BUSPIRONE HCL 15 MG TABLET PO SCH (20:49)
[2019-10-09] MEDS: ENOXAPARIN 100 MG/ML SYR SQ SCH (20:50)
[2019-10-09] MEDS: ATORVASTATIN 10 MG TAB PO SCH (20:50)
[2019-10-09] MEDS ORDERED: AZITHROMYCIN 500 MG INJ IVPB ONE (22:08)
[2019-10-09] MEDS: AZITHROMYCIN IV 500 MG in NA CHLORIDE 0.9% 250 ML IVPB SCH (22:25)
[2019-10-09] MEDS ORDERED: NA CHLORIDE 0.9% 250 ML ONE (22:28)
[2019-10-10] MEDS: METHYLPREDNISOLONE 40 MG INJ IV SCH ×4 (00:28→23:40)
[2019-10-10] MEDS: ACETAMINOPHEN 500 MG TAB PO PRN ×3 (02:11→23:59)
[2019-10-10 05:19] LABS: Absolute Lymphocytes (CBC) 0.6 K/uL (0.7-4.9); Basophils % 0.1 % (0-1.3); Hematocrit 41.7 % (36.0-45.0); Lymphocytes % 14.8 % (15.3-44.8); MPV 8.5 fL (7.6-11.3); RBC Red Blood Cell Count 4.45 M/uL (3.86-4.86)
[2019-10-10 05:41] LABS: ALT/SGPT 34 U/L (12-78); AST/SGOT 27 U/L (15-37); Alkaline Phosphatase 91 U/L (45-117); BUN Blood Urea Nitrogen 17 mg/dL (7-18); Bicarbonate 23 mmol/L (21-32); Bilirubin Total 0.5 mg/dL (0.2-1.0); Glucose Level 156 mg/dL (74-106); Magnesium 2.4 mg/dL (1.8-2.4); Phosphorus 3.3 mg/dL (2.5-4.9); Potassium 3.8 mmol/L (3.5-5.1); Protein, Total 7.3 g/dL (6.4-8.2); Sodium Level 139 mmol/L (136-145)
[2019-10-10] MEDS: AMLODIPINE 10 MG TAB PO SCH ×2 (06:05→08:26)
--- NOTE | 2019-10-10 07:33 | EKG ---
Test Date: 2019-10-09 Test Time: 11:55:58 Brush Washer: MARIA G MEASUREMENT RESULTS: Intervals: Rate: 70 ME: 162 QRSD: 96 QT: 396 QTc: 427 [place]: P: 46 ME: 162 QRS: -48 T: 58 INTERPRETIVE STATEMENTS: Normal sinus rhythm Left anterior fascicular block Moderate voltage criteria for LVH, may be normal variant Abnormal ECG Compared to ECG 06/08/2018 23:44:28 No significant changes Electronically Signed On 10-10-19 07:32:28 CDT by Isaak Garner
[2019-10-10] MEDS: ASCORBIC ACID 500 MG TABLET PO SCH ×3 (08:22→19:44)
[2019-10-10] MEDS: ENOXAPARIN 100 MG/ML SYR SQ SCH ×2 (08:22→19:43)
[2019-10-10] MEDS: DULOXETINE 30 MG CAP PO SCH (08:22)
[2019-10-10] MEDS: VITAMIN D 1000 UNIT TAB PO SCH (08:26)
[2019-10-10] MEDS: BUSPIRONE HCL 15 MG TABLET PO SCH ×2 (08:31→19:44)
[2019-10-10] MEDS: AZITHROMYCIN IV 500 MG in NA CHLORIDE 0.9% 250 ML IVPB SCH (08:51)
[2019-10-10] MEDS ORDERED: POTASSIUM 25 MEQ EFFERV TAB PO ONE (09:00)
[2019-10-10] MEDS ORDERED: CEFTRIAXONE 1 GM/NS 50 ML 1 GM/50 ML BAG IV SCH (09:00)
[2019-10-10] MEDS ORDERED: CEFTRIAXONE/SWI 1gm 1 GM/10 ML SYR IV SCH (09:00)
--- NOTE | 2019-10-10 11:31 | P.PN ---
Subjective Date of Service: 10/10/19 Chief Complaint: Cough , shortness of breath Subjective: No new changes, Improving Review of Systems 10-point ROS is otherwise unremarkable Physical Examination - Vital Signs Temperature: 98.3 F Blood Pressure: 135/71 Pulse: 82 Respirations: 18 Pulse Ox (%): 93 - Physical Exam General: Alert, In no apparent distress HEENT: Atraumatic, Normocephalic Neck: Supple Respiratory: Diminished, Crackles/rales Cardiovascular: Normal pulses, Regular rate/rhythm, Normal S1 S2 Capillary refill: <2 Seconds Gastrointestinal: Soft and benign, W/out hepatosplenomegaly Musculoskeletal: No clubbing, No swelling Integumentary: No rashes, No breakdown Neurological: Normal speech, Normal strength at 5/5 x4 extr Lymphatics: No axilla or inguinal lymphadenopathy - Studies Laboratory Data (last 24 hrs) 10/09/19 12:13: PT 11.5, INR 0.96 10/09/19 12:13: WBC 7.7, Hgb 14.2, Hct 41.9, Plt Count 238 10/09/19 12:13: Sodium 141, Potassium 3.8, BUN 12, Creatinine 0.63, Glucose 99, Magnesium 2.2, Total Bilirubin 0.6, AST 29, ALT 30, Alkaline Phosphatase 87 Microbiology Data (last 24 hrs): 10/09/19 11:35 Nasopharnyx Coronavirus COVID-19 PCR - Final 10/09/19 12:13 Throat Group A Streptococcus Rapid Screen - Final 10/09/19 12:13 Nasopharnyx Influenza Type A Antigen Screen - Final 10/09/19 12:13 Nasopharnyx Influenza Type B Antigen Screen - Final Assessment & Plan Physician Review Additional Text: Possible COVID 19 Pneumonia Hypertension Hyperlipidemia Anxiety Plan Monitor under telemetry Will get COVID 19 test Cultures Was start on empirical antibiotics Will get a CT of the chest Start on Solu-Medrol Full anticoagulation Oxygen supplementation Continue home medications and titrate as needed GI/DVT prophylaxis Advanced directives full code 10/10/2019 Covid Test came back positive Continue steroids CT chest findings noted Monitor closely Cultures pending Continue home medications and titrate as needed CRP is elevated Time Spent Managing Pts Care (In Minutes): 45
[2019-10-10] MEDS: ATORVASTATIN 10 MG TAB PO SCH (19:44)
[2019-10-10] MEDS ORDERED: ENOXAPARIN 100 MG/ML SYR SQ SCH (21:00)
[2019-10-11 04:35] VITALS: TEMP 97.4
[2019-10-11] MEDS: AMLODIPINE 10 MG TAB PO SCH ×2 (05:42→08:28)
[2019-10-11 06:10] LABS: BUN Blood Urea Nitrogen 19 mg/dL (7-18); Bicarbonate 26 mmol/L (21-32); Glucose Level 148 mg/dL (74-106); Potassium 3.7 mmol/L (3.5-5.1); Sodium Level 140 mmol/L (136-145)
[2019-10-11] MEDS ORDERED: BENZONATATE 100 MG CAP PO PRN (07:59)
[2019-10-11] MEDS ORDERED: HYDROCODONE/CHLORPHEN 5 ML/OSYR PO PRN (07:59)
[2019-10-11] MEDS: VITAMIN D 1000 UNIT TAB PO SCH (08:27)
[2019-10-11] MEDS: DULOXETINE 30 MG CAP PO SCH (08:27)
[2019-10-11] MEDS: METHYLPREDNISOLONE 40 MG INJ IV SCH (08:28)
[2019-10-11] MEDS: ASCORBIC ACID 500 MG TABLET PO SCH (08:28)
[2019-10-11] MEDS: ENOXAPARIN 100 MG/ML SYR SQ SCH (08:29)
--- NOTE | 2019-10-11 08:30 | P.CNS ---
Date of Consult: 10/11/19 (TV) Reason for Consult: COVID penumonia Chief Complaint: Cough , shortness of breath History of Present Illness: PT 69 yrs of age with multiple medical problems AW cough and SOBworse past 3 days NAusea and vomting Allergies codeine [Codeine] Allergy (Intermediate, Verified 08/02/16 10:35) Itching/Hives/Rash morphine Adverse Reaction (Verified 08/02/16 10:36) hallucinations Home Medications: Duloxetine HCl [Cymbalta] 60 mg PO DAILY 08/08/13 Simvastatin 20 mg PO BEDTIME 08/08/13 Amlodipine Besylate 10 mg PO [id number] 08/02/16 Buspirone HCl 1 tab PO BID 10/09/19 - Past Medical/Surgical History Diabetic: No -: Hypertension -: Anxiety -: Hyperlipidemia -: Anxiety -: Vitamin D deficiency -: tubal 1972 -: hysterectomy 33 yrs ago -: cholecystectomy 10 yrs ago Psychosocial/ Personal History: , 7 children, She does not work. - Family History Father Medical History: Heart disease Mother Medical History: Hypertension, Cancer Notes: mother had colon cancer - Social History Smoking Status: Never smoker Alcohol use: No CD- Drugs: No Caffeine use: No Place of Residence: Home Review of Systems is unable to be obtained Respiratory: Cough, Shortness of Breath Physical Examination Temp Pulse Resp BP Pulse Ox 97.4 F 82 21 H 134/81 96 10/11/19 04:00 10/11/19 06:25 10/11/19 06:25 10/11/19 06:25 10/11/19 06:25 General: Alert, Cooperative - Problems (1) COVID-19 Current Visit: Yes Status: Acute Plan: COVID pneumonia- Doign well. CRP elevated on nasal canula O2. Rec D/C home on pred 20 BId for a week . F/u with me 2 wks.D/C on MATH protocol
[2019-10-11] MEDS ORDERED: METHYLPREDNISOLONE 125 MG INJ IV SCH (09:00)
[2019-10-11] MEDS ORDERED: POTASSIUM CL SA 10 MEQ TAB PO ONE (09:00)
--- NOTE | 2019-10-11 10:39 | P.DS ---
Admission Date: 10/09/19 Discharge Date: 10/11/19 Disposition: ROUTINE DISCHARGE Discharge Condition: GOOD Reason for Admission: Cough , shortness of breath Brief History of Present Illness: 69 yrs old Female with past medical history of hypertension, hyperlipidemia, anxiety, vitamin-D deficient came with a history of cough associated with some shortness of breath which has been going on for the last 3 days and has been progressively worsening and was brought to ER. She also has associated nausea and vomiting. Also complains of abdominal pain diffuse. Denies any fever or chills. Cough is productive with mucoid expectoration. No hemoptysis Patient reports son and daughter in-law tested positive for COVID-19 and that she was tested on September 26 with her results being negative. Patient was assessed in the ER and was found to have possible pneumonitis and was admitted for further management Hospital Course: COVID 19 Pneumonia Hypertension Hyperlipidemia Anxiety Course Patient was admitted and was monitored closely under telemetry. Started on empirical antibiotics , had a COVID 19 test which was came up positive CT of the chest was done . Started on Solu-Medrol along with full anticoagulation and oxygen supplementation p.r.n.. Appreciate help from pulmonology. Patient is weaned off oxygen and saturating well on room air. The patient is being discharged home today in a stable condition with advice to follow up with PCP in 1 week and also with pulmonology in 1 week, she will be continued on steroids along with anticoagulation. Vital Signs/Physical Exam: Temp Pulse Resp BP Pulse Ox 97.4 F 82 13 120/60 96 10/11/19 04:00 10/11/19 10:23 10/11/19 10:23 10/11/19 10:23 10/11/19 10:23 General: Alert, In no apparent distress HEENT: Atraumatic, Normocephalic Neck: Supple Respiratory: Normal air movement, Crackles/rales Cardiovascular: Normal pulses, Regular rate/rhythm, Normal S1 S2 Capillary refill: <2 Seconds Gastrointestinal: Soft and benign, W/out hepatosplenomegaly Musculoskeletal: No clubbing, No swelling Integumentary: No rashes Neurological: Normal speech, Normal strength at 5/5 x4 extr Lymphatics: No axilla or inguinal lymphadenopathy Laboratory Data at Discharge: WBC 4.1 K/uL (4.3-10.9) L D 10/10/19 04:42 Hgb 14.3 g/dL (12.0-15.0) 10/10/19 04:42 Hct 41.7 % (36.0-45.0) 10/10/19 04:42 Plt Count 237 K/uL (152-406) 10/10/19 04:42 PT 11.5 SECONDS (9.2-12.8) 10/09/19 12:13 INR 0.96 10/09/19 12:13 Sodium 140 mmol/L (136-145) 10/11/19 05:32 Potassium 3.7 mmol/L (3.5-5.1) 10/11/19 05:32 BUN 19 mg/dL (7-18) H 10/11/19 05:32 Creatinine 0.61 mg/dL (0.55-1.3) 10/11/19 05:32 Glucose 148 mg/dL (74-106) H 10/11/19 05:32 Phosphorus 3.3 mg/dL (2.5-4.9) 10/10/19 04:42 Magnesium 2.4 mg/dL (1.8-2.4) 10/10/19 04:42 Total Bilirubin 0.5 mg/dL (0.2-1.0) 10/10/19 04:42 AST 27 U/L (15-37) 10/10/19 04:42 ALT 34 U/L (12-78) 10/10/19 04:42 Alkaline Phosphatase 91 U/L (45-117) 10/10/19 04:42 Troponin I Cancelled 10/10/19 06:00 Home Medications: Duloxetine HCl [Cymbalta] 60 mg PO DAILY 08/08/13 Simvastatin 20 mg PO BEDTIME 08/08/13 Amlodipine Besylate 10 mg PO [id number] 08/02/16 Buspirone HCl 1 tab PO BID 10/09/19 Apixaban [Eliquis] 5 mg PO BID #20 tablet 10/11/19 Ascorbic Acid [Vitamin C] 500 mg PO BID #20 tab 10/11/19 Zinc Sulfate [Zinc Sulfate*] 220 mg PO BID #20 cap 10/11/19 predniSONE [Deltasone] 20 mg PO BID #20 tab 10/11/19 New Medications: Apixaban [Eliquis] 5 mg PO BID #20 tablet predniSONE [Deltasone] 20 mg PO BID #20 tab Ascorbic Acid [Vitamin C] 500 mg PO BID #20 tab Zinc Sulfate [Zinc Sulfate*] 220 mg PO BID #20 cap Diet: AHA Followup: Robbie Olson MD [ACTIVE - CAN ADMIT] - Time spent managing pt's care (in minutes): 42
[2019-10-11] MEDS: ACETAMINOPHEN 500 MG TAB PO PRN (11:26)
[2019-10-11] MEDS: BUSPIRONE HCL 15 MG TABLET PO SCH (11:27)
[2019-10-11 11:44] VITALS: O2SAT 97
[2019-10-11 13:37] VITALS: BP 150/75
== END 2019-10-11 13:30 | disposition home or self-care (01) | DRG 177 ==
LOC: ER 11:22 → ERHOLD 13:48 → 4TH 14:59 → 3RD-ICU 10-11 06:21
PROVIDERS: ADMIT Family Medicine; ATTEND Family Medicine
PROC: 8E0ZXY6 Isolation (ICD-10-PCS; principal; 2019-10-09)
DX: U07.1 COVID-19 (principal); J12.89 Other viral pneumonia; I10 Essential (primary) hypertension; F41.9 Anxiety disorder, unspecified; E78.5 Hyperlipidemia, unspecified; Z88.5 Allergy status to narcotic agent; Z79.899 Other long term (current) drug therapy; Z90.710 Acquired absence of both cervix and uterus; Z90.49 Acquired absence of other specified parts of digestive tract; Z98.51 Tubal ligation status
CPT/HCPCS: 36415; 71045; 71250; 80048; 80053; 80076; 81003; 81015; 82728; 83605; 83735; 83880; 84100; 84132; 84145; 84484; 85025; 85379; 85610; 86140; 87040; 87070; 87081; 87804; 93005; 94760; 96374; 96375; 99285; J0456; J0696; J1650; J2920; J2930; J7050; U0002

== ENCOUNTER 2020-07-30 06:37 | Day surgery (SDC) | payer OTHER ==
[2020-07-30] MEDS ORDERED: TROPICAMIDE 1% OPTH 3 ML BOT ONE (07:12)
[2020-07-30] MEDS ORDERED: KETOROLAC OPTHALMIC 5 ML BOT ONE (07:12)
[2020-07-30] MEDS ORDERED: MOXIFLOXACIN HCL 0.5% 3ML OPTH OPTH ONE (07:13)
[2020-07-30] MEDS ORDERED: CYCLOPENTOLATE 2% OPTH 2 ML ONE (07:13)
[2020-07-30] MEDS ORDERED: PHENYLEPHRINE 2.5% OPTH 2 ML ONE (07:15)
[2020-07-30] MEDS ORDERED: Ringers Lactate 1,000 ML IV ONE (07:18)
[2020-07-30] MEDS ORDERED: EPINEPHRINE/PF 1 MG/ML AMP ONE (07:19)
[2020-07-30] MEDS ORDERED: BALANCED SALT IRRIG PLAIN 500 ML BTL IRR ONE (07:19)
[2020-07-30] MEDS ORDERED: BSS OPTHALMIC SOL 15 ML BOT OPTH ONE (07:19)
[2020-07-30] MEDS ORDERED: HYALURONATE SODIUM 14 MG/ML SYR OPTH ONE (07:20)
[2020-07-30] MEDS ORDERED: DUOVISC 1 KIT OPTH ONE (07:20)
[2020-07-30] MEDS ORDERED: POVIDONE-IODINE 5% EYE DROPS ONE (07:20)
[2020-07-30] MEDS ORDERED: TOBRADEX 0.3-0.1% OPTH OINTMENT ONE (07:20)
[2020-07-30] MEDS ORDERED: FENTANYL CITR 100 MCG/2 ML ONE (07:33)
[2020-07-30] MEDS ORDERED: propofoL 200 MG/20 ML VIAL IV ONE ×2 (07:33→08:55)
[2020-07-30] MEDS ORDERED: MIDAZOLAM HCL 2 MG/2 ML INJ ONE (07:33)
[2020-07-30] MEDS ORDERED: LIDOCAINE 1% MPF 5 ML VIAL ONE (07:34)
[2020-07-30] MEDS ORDERED: KETOROLAC 30 MG/ML INJ ONE (08:09)
[2020-07-30] MEDS ORDERED: dexAMETHasone 10 MG/ML VIAL ONE (08:09)
[2020-07-30] MEDS ORDERED: ONDANSETRON 4 MG/2 ML VIAL ONE (08:13)
[2020-07-30] MEDS ORDERED: EPHEDRINE SULF 50 MG/ML VIAL ONE (08:13)
[2020-07-30] MEDS ORDERED: NS 0.9% VIAL 10 ML ONE ×2 (08:13→08:28)
[2020-07-30] MEDS ORDERED: GLYCOPYRROLATE 0.2 MG/ML SYR ONE (08:21)
[2020-07-30] MEDS ORDERED: Phenylephrine HCl 10 MG/ML 1 ML VIAL ONE (08:28)
[2020-07-30 09:06] VITALS: O2SAT 98
[2020-07-30 09:37] VITALS: BP 138/74; TEMP 97.2
--- NOTE | 2020-07-30 18:55 | OP ---
Date of Procedure: 07/30/2020 Surgeon: Marino Musa MD Sales Representative Printing: None. Preoperative Diagnosis: Visually significant cataract, left eye. Postoperative Diagnosis: Visually significant cataract, left eye. Procedure Performed: Excision of cataract left eye with placement of intraocular lens, left eye. Procedure In Detail: After being properly identified in the preoperative holding area, patient was taken back to the operating room where a time-out was performed. The patient was then prepped and draped in the normal sterile fashion. Examination of the eye underneath the operating microscope revealed a moderately dilated pupil with a good red reflex, but adequate dilation to allow the procedure without the addition of hooks or a Malyugan ring. Two paracentesis ports were made using a 1.0 mm blade at the 12 o'clock and 6 o'clock position and then the eye was instilled with Viscoat. Thereafter, the globe was held firmly in place with a pair of 0.12 forceps and the main phaco incision wound was made temporally in a triplanar fashion using a 2.75 mm keratome. A capsulorrhexis was initiated using a cystotome and completed with Utrata forceps and thereafter the lens was hydrodissected and hydrodelineated using a Torres cannula. This resulted in free rotation of the lens nucleus and thereafter the cataract was removed using a standard divide and conquer technique. Once all 4 quadrants had been removed, the phaco handpiece was exchanged for bimanual irrigation and aspiration hand pieces and all cortical material was removed and the capsule was polished. The capsular bag was then filled with additional viscoelastic from the DuoVisc pack and an Jamil model SN60WF, power 22.0 diopter, serial #[id number] was placed inside the capsular bag. Of note the viscoelastic was then removed both with a bimanual and then later with a coaxial irrigation and aspiration handpiece. The wounds were hydrated, but because of the soft iris, which actually had prolapsed out twice during the procedure, two 10-0 nylon sutures were placed in the interrupted fashion through the main phaco incision wound in order to just secure water tightness and reduce the chance of intervening prolapse. A small air bubble was placed inside the eye as well and the globe palpated and felt to be adequate pressure and the procedure concluded. The patient having tolerated the procedure well. She was under general anesthesia the entire time with no complications. Estimated Blood Loss: 0. No specimens were sent or drains placed. Implants are as above. The patient is to follow up with myself Dr. Marino Musa at [facility] tomorrow morning. DICTATED BUT NOT REVIEWED JPG/MODL Voice ID: [id number] Report ID: [id number] MTDD
== END 2020-07-30 10:25 | disposition home or self-care (01) ==
LOC: OR 06:37
PROVIDERS: ATTEND Ophthalmology
PROC: 08RK30Z Replacement of Left Lens with Intraocular Telescope, Percutaneous Approach (ICD-10-PCS; principal; 2020-07-30 07:30)
DX: H26.9 Unspecified cataract (principal); H54.62 Unqualified visual loss, left eye, normal vision right eye; I10 Essential (primary) hypertension; K21.9 Gastro-esophageal reflux disease without esophagitis; Z20.822 Contact with and (suspected) exposure to COVID-19
CPT/HCPCS: 0308T; U0002; J2704 ×2; J0171; J2370; J3010; J1100; J7120; J2405; J2250

== ENCOUNTER 2022-03-11 12:48 | Emergency (ER) | payer OTHER ==
--- OUTSIDE RECORDS SUMMARY | 2022-03-11 12:51 | XMS REPORT | Continuity of Care Document ---
:1950 Author Organization [facility] t Address [address] [place] [address] Care Team Providers Name Role Phone Frederick Plaza DO Primary Care Physician [phone] Frederick Plaza Attending Clinician Unavailable Payers Payer Name Policy Type Policy Number Effective Date Expiration Date S [facility] [employer] MEDICARE C1 [id number] 2019 Common Sp meredith 00:00:00 [facility] Problems Condition Condition Condition Status Onset Resolution Last Treating Co mments Source Name Details Category Date Date Treatment Clinician Date [id number] Mixed Problem Active Common hyperlipid Spirit emia [facility] [id number] Panic Problem Active Common disorder Spirit [episodic - [facility]I paroxysmal St anxiety] [facility] [id number] Current Problem Active Common moderate Spirit episode of - [facility]I major depressive [facility] prior episode [id number] 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 athy - [facility] [id number] Hyperlipid Problem Active Com mon emia, Spirit unspecifie - [facility] Abnormal Abnormal Problem Active Commo n mammogram mammogram Spir it of left - CHI breast [facility] [id number] Generalize Problem Active Com mon d anxiety Spirit disorder [facility] [id number] Primary Problem Active Common insomnia Spirit [facility] [id number] Depression Problem Active Co mmon with [facility] anxiety - [facility] [id number] HTN, goal Problem Active Comm on below [facility] 150/90 [facility] [id number] Morbid Problem Active Common (severe) [facility] obesity - [facility] due to [facility] [id number] Body mass Problem Active Com mon index Spirit (BMI) of - [facility] 37.0-37.9 [facility] in [facility] Allergies, Adverse Reactions, Alerts Allergy Allergy Status Severity Reaction(s) Onset Inactive Treating Comm ents Source Name Type Date Date Clinician Morphine Morphine Active Unknown Commo n [facility] Social History Social Habit Start Date Stop Date Quantity Comments Source History of Tobacco Common [facility] Use [facility] Sex Assigned At [birth year] [facility] 00:00:00 00:00:00 [facility] Smoking Status Start Date Stop Date Source Never Smoker Common [facility] Medications Ordered Filled Start Stop Current Ordering Indication Dosage Frequency Signature Comments Components Source Medication Medication Date Date Medication? Clinician (SIG) Name Name Trazodone Trazodone 2019- Yes Frederick Take 1/2 Common HCl HCl 8-21 Plaza tab [facility] x Spirit 00:00: 1 week - [facility] [address] [facility] Vitamin D Vitamin D Yes Frederick 1 capsule Common Plaza [facility] BusPIRone BusPIRone Yes Frederick 1 tablet Common HCl HCl Plaza [facility] Amlodipine Amlodipine Yes Frederick take 1 Common Besylate Besylate Palza tablet by S pirit mouth - CHI daily once St a [facility] Vitamin C Vitamin C Yes Frederick as Com mon Plaza directed [facility] Simvastatin Simvastatin Yes Frederick 1 tablet Common Plaza in the [facility] evening [facility] Duloxetine Duloxetine Yes Frederick take 1 Common HCl HCl Plaza capsule by Spirit mouth - CHI every day [facility] Simvastatin Simvastatin Yes Frederick TAKE 1 Common Plaza TABLET BY Spirit MOUTH - CHI EVERY DAY St IN THE [facility] DULoxetine DULoxetine No DULoxetine HCl 60 MG HCl 60 MG HCl 60 MG amLODIPine amLODIPine No amLODIPine Besylate 10 Besylate 10 Besylate MG MG 10 MG busPIRone busPIRone No 1{table BID busPIRone HCl 15 MG HCl 15 MG t} HCl 15 MG QUEtiapine QUEtiapine No QUEtiapine Fumarate 25 Fumarate 25 Fumarate MG MG 25 MG amLODIPine amLODIPine No amLODIPine Besylate 10 Besylate 10 Besylate MG MG 10 MG DULoxetine DULoxetine No DULoxetine HCl 60 MG HCl 60 MG HCl 60 MG Vitamin C Vitamin C No Vitamin C 500 MG 500 MG 500 MG busPIRone busPIRone No busPIRone HCl 30 MG HCl 30 MG HCl 30 MG Vitamin D Vitamin D No 1{capsu QD Vitamin D 400 UNIT 400 UNIT le} 400 UNIT Simvastatin Simvastatin No Simvastati 20 MG 20 MG n 20 MG busPIRone busPIRone No 1{table BID busPIRone HCl 15 MG HCl 15 MG t} HCl 15 MG QUEtiapine QUEtiapine No QUEtiapine Fumarate 25 Fumarate 25 Fumarate MG MG 25 MG amLODIPine amLODIPine No amLODIPine Besylate 10 Besylate 10 Besylate MG MG 10 MG DULoxetine DULoxetine No DULoxetine HCl 60 MG HCl 60 MG HCl 60 MG Vitamin C Vitamin C No Vitamin C 500 MG 500 MG 500 MG busPIRone busPIRone No busPIRone HCl 30 MG HCl 30 MG HCl 30 MG Vitamin D Vitamin D No 1{capsu QD Vitamin D 400 UNIT 400 UNIT le} 400 UNIT Simvastatin Simvastatin No Simvastati 20 MG 20 MG n 20 MG busPIRone busPIRone No 1{table BID busPIRone HCl 15 MG HCl 15 MG t} HCl 15 MG QUEtiapine QUEtiapine No QUEtiapine Fumarate 25 Fumarate 25 Fumarate MG MG 25 MG amLODIPine amLODIPine No amLODIPine Besylate 10 Besylate 10 Besylate MG MG 10 MG DULoxetine DULoxetine No DULoxetine HCl 60 MG HCl 60 MG HCl 60 MG Vitamin C Vitamin C No Vitamin C 500 MG 500 MG 500 MG busPIRone busPIRone No busPIRone HCl 30 MG HCl 30 MG HCl 30 MG Vitamin D Vitamin D No 1{capsu QD Vitamin D 400 UNIT 400 UNIT le} 400 UNIT Simvastatin Simvastatin No Simvastati 20 MG 20 MG n 20 MG QUEtiapine QUEtiapine No QUEtiapine Fumarate 25 Fumarate 25 Fumarate MG MG 25 MG busPIRone busPIRone No 1{table BID busPIRone HCl 15 MG HCl 15 MG t} HCl 15 MG Simvastatin Simvastatin No 1{table QD Simvastati 20 MG 20 MG t_in_th n 20 MG e_eveni ng} DULoxetine DULoxetine No QD DULoxetine HCl 60 MG HCl 60 MG HCl 60 MG Vitamin C Vitamin C No Vitamin C 500 MG 500 MG 500 MG amLODIPine amLODIPine No QD amLODIPine Besylate 10 Besylate 10 Besylate MG MG 10 MG Vitamin D Vitamin D No 1{capsu QD Vitamin D 400 UNIT 400 UNIT le} 400 UNIT DULoxetine DULoxetine No DULoxetine HCl 60 MG HCl 60 MG HCl 60 MG busPIRone busPIRone No busPIRone HCl 15 MG HCl 15 MG HCl 15 MG busPIRone busPIRone No busPIRone HCl 30 MG HCl 30 MG HCl 30 MG Simvastatin Simvastatin No Simvastati 20 MG 20 MG n 20 MG amLODIPine amLODIPine No amLODIPine Besylate 10 Besylate 10 Besylate MG MG 10 MG Simvastatin Simvastatin No Simvastati 20 MG 20 MG n 20 MG Vitamin D Vitamin D No 1{capsu QD Vitamin D 400 UNIT 400 UNIT le} 400 UNIT Vitamin C Vitamin C No Vitamin C 500 MG 500 MG 500 MG amLODIPine amLODIPine No QD amLODIPine Besylate 10 Besylate 10 Besylate MG MG 10 MG busPIRone busPIRone No 1{table BID busPIRone HCl 15 MG HCl 15 MG t} HCl 15 MG busPIRone busPIRone No busPIRone HCl 30 MG HCl 30 MG HCl 30 MG DULoxetine DULoxetine No QD DULoxetine HCl 60 MG HCl 60 MG HCl 60 MG Simvastatin Simvastatin No 1{table QD Simvastati 20 MG 20 MG t_in_th n 20 MG e_eveni ng} DULoxetine DULoxetine No DULoxetine HCl 60 MG HCl 60 MG HCl 60 MG amLODIPine amLODIPine No amLODIPine Besylate 10 Besylate 10 Besylate MG MG 10 MG Simvastatin Simvastatin No Simvastati 20 MG 20 MG n 20 MG Vitamin D Vitamin D No 1{capsu QD Vitamin D 400 UNIT 400 UNIT le} 400 UNIT Vitamin C Vitamin C No Vitamin C 500 MG 500 MG 500 MG amLODIPine amLODIPine No QD amLODIPine Besylate 10 Besylate 10 Besylate MG MG 10 MG busPIRone busPIRone No 1{table BID busPIRone HCl 15 MG HCl 15 MG t} HCl 15 MG busPIRone busPIRone No busPIRone HCl 30 MG HCl 30 MG HCl 30 MG DULoxetine DULoxetine No QD DULoxetine HCl 60 MG HCl 60 MG HCl 60 MG Simvastatin Simvastatin No 1{table QD Simvastati 20 MG 20 MG t_in_th n 20 MG e_eveni ng} Immunizations Ordered Immunization Filled Immunization Date Status Commen ts Source Name Name FluAD FluAD 2021-01-08 Completed [facility] 13:46:00 - [facility] FluAD FluAD 2021-01-08 Completed [facility] 13:46:00 - [facility] FluAD FluAD 2021-01-08 Completed [facility] 13:46:00 - [facility] FluAD FluAD 2021-01-08 Completed [facility] 13:46:00 - [facility] FluAD FluAD 2021-01-08 Completed [facility] 13:46:00 - [facility] FluAD FluAD 2021-01-08 Completed [facility] 13:46:00 - [facility] FluAD FluAD 2019-12-19 Completed [facility] 15:24:00 - [facility] FluAD FluAD 2019-12-19 Completed [facility] 15:24:00 - [facility] FluAD FluAD 2019-12-19 Completed [facility] 15:24:00 - [facility] FluAD FluAD 2019-12-19 Completed [facility] 15:24:00 - [facility] FluAD FluAD 2019-12-19 Completed [facility] 15:24:00 - [facility] FluAD FluAD 2019-12-19 Completed [facility] 15:24:00 - [facility] FluAD FluAD 2018-12-05 Completed [facility] 13:52:00 - [facility] FluAD FluAD 2018-12-05 Completed [facility] 13:52:00 - [facility] FluAD FluAD 2018-12-05 Completed [facility] 13:52:00 - [facility] FluAD FluAD 2018-12-05 Completed [facility] 13:52:00 - [facility] FluAD FluAD 2018-12-05 Completed [facility] 13:52:00 - [facility] FluAD FluAD 2018-12-05 Completed [facility] 13:52:00 - [facility] FluAD FluAD 2018-12-05 Completed [facility] 00:00:00 [facility] Vital Signs Vital Name Observation Time Observation Value Comments Source height 2021-11-17 14:30:00 61.5 [in_i] [facility] weight 2021-11-17 14:30:00 205.1 [lb_av] [facility] temperature 2021-11-17 14:30:00 98.0 [degF] [facility] bmi 2021-11-17 14:30:00 38.12 kg/m2 [facility] oximetry 2021-11-17 14:30:00 98 % [facility] respiratory rate 2021-11-17 14:30:00 18 /min Comm on [facility] blood pressure 2021-11-17 14:30:00 119 mm[Hg] [facility] - systolic [facility] blood pressure 2021-11-17 14:30:00 78 mm[Hg] Common [facility] - diastolic [facility] height 2021-08-17 13:20:00 61.5 [in_i] [facility] weight 2021-08-17 13:20:00 206.5 [lb_av] [facility] temperature 2021-08-17 13:20:00 99.1 [degF] [facility] bmi 2021-08-17 13:20:00 38.38 kg/m2 [facility] oximetry 2021-08-17 13:20:00 98 % [facility] respiratory rate 2021-08-17 13:20:00 18 /min Comm on [facility] blood pressure 2021-08-17 13:20:00 135 mm[Hg] Common [facility] - systolic [facility] blood pressure 2021-08-17 13:20:00 73 mm[Hg] Common [facility] - diastolic [facility] height 2021-08-17 13:20:00 61.5 [in_i] Common [facility] weight 2021-08-17 13:20:00 206.5 [lb_av] [facility] temperature 2021-08-17 13:20:00 99.1 [degF] Common [facility] bmi 2021-08-17 13:20:00 38.38 kg/m2 Common [facility] oximetry 2021-08-17 13:20:00 98 % Common [facility] respiratory rate 2021-08-17 13:20:00 18 /min Comm on [facility] blood pressure 2021-08-17 13:20:00 135 mm[Hg] Common [facility] systolic [facility] blood pressure 2021-08-17 13:20:00 73 mm[Hg] Common [facility] diastolic [facility] height 2021-02-10 14:00:00 61.5 [in_i] Common [facility] weight 2021-02-10 14:00:00 209.1 [lb_av] [facility] temperature 2021-02-10 14:00:00 98.2 [degF] [facility] bmi 2021-02-10 14:00:00 38.87 kg/m2 [facility] oximetry 2021-02-10 14:00:00 92 % [facility] respiratory rate 2021-02-10 14:00:00 16 /min Comm on [facility] blood pressure 2021-02-10 14:00:00 132 mm[Hg] Common [facility] systolic [facility] blood pressure 2021-02-10 14:00:00 63 mm[Hg] Common [facility] diastolic [facility] Procedures This patient has no known procedures. Encounters Start End Encounter Admission Attending Care Care Encounter Source Date/Time Date/Time Type Type Clinicians Facility Department ID 2022-02-14 Outpatient [facility] [id number] Common 09:15:01 Frederick [facility] 2021-08-02 Outpatient Plaza, STLMLC STLMLC [id number] Common 14:38:02 Frederick [facility] 2021-04-07 Outpatient Plaza, STLMLC STLC [id number] Common 14:19:22 Frederick [facility] 2021-04-07 Outpatient Plaza, STLMLC STLC [id number] Common 13:08:11 Frederick [facility] 2021-04-07 Outpatient Plaza, STLMLC STLC [id number] Common 12:36:26 Frederick 84788 [facility] 2021-04-07 Outpatient Plaza, STLMLC STLC [id number] Common 12:35:26 Frederick 76264 [facility] 2021-04-07 Outpatient [address], STLMLC STLC [id number] Common 12:28:51 Frederick 71896 [facility] 2021-04-07 Outpatient [facility], STLMLC STLC [id number] Common 12:27:42 Frederick [id number] [facility] 2021-04-07 Outpatient Plaza, STLMLC STLC [id number] Common 12:25:41 Frederick [facility] 2021-04-07 Outpatient [facility], STLMLC STLC [id number] Common 12:24:55 Frederick [id number] [facility] 2021-04-07 Outpatient Plaza, STLMLC STLC [id number] Common 11:57:47 Frederick 76456 [facility] 2021-04-07 Outpatient Plaza, STLMLC STLC [id number] Common 11:39:45 Frederick [id number] [facility] 2021-04-07 Outpatient Plaza, STLMLC STLC [id number] Common 11:29:35 Frederick 48131 [facility] 2021-04-07 Outpatient Plaza, STLMLC STLMLC [id number] Common 11:10:22 [facility] [id number] [facility] 2021-04-07 Outpatient Plaza, STLMLC STLMLC [id number] Common 11:09:37 Frederick [id number] [facility] 2021-11-17 2021-11-17 OFFICE STLMLC STLMLC [id number] Co mmon 00:00:00 00:00:00 VISIT [facility] ESTAB PT - CHI LEVEL 4 [facility] 2021-08-17 2021-08-17 OFFICE STLMLC STLMLC [id number] Co mmon 00:00:00 00:00:00 VISIT [facility] PT - CHI LEVEL 4 [facility] 2021-08-17 2021-08-17 SUB ANNUAL STLMLC STLMLC [id number] Common 00:00:00 00:00:00 MCR [facility] WELLNESS - [facility] VISIT [facility] 2021-08-17 2021-08-17 (TEL) STLMLC STLMLC [id number] Co mmon 00:00:00 00:00:00 [facility] 2021-03-01 2021-03-01 (TEL) STLMLC STLMLC [id number] Co mmon 00:00:00 00:00:00 [facility] 2021-02-10 2021-02-10 OFFICE STLMLC STLMLC [id number] Co mmon 00:00:00 00:00:00 VISIT [facility] PT - CHI LEVEL 4 [facility] 2020-10-12 2020-10-12 Outpatient STLMLC STLMLC [id number] Common 00:00:00 00:00:00 [facility] 2020-07-02 2020-07-02 Outpatient STLMLC STLMLC [id number] Common 00:00:00 00:00:00 [facility] 2020-06-04 2020-06-04 Outpatient STLMLC STLMLC [id number] Common 00:00:00 00:00:00 [facility] 2020-05-26 2020-05-26 Outpatient STLMLC STLMLC [id number] Common 00:00:00 00:00:00 [facility] 2020-05-14 2020-05-14 Outpatient STLMLC STLMLC [id number] Common 00:00:00 00:00:00 [facility] 2020-04-16 2020-04-16 Outpatient STLMLC STLMLC [id number] Common 00:00:00 00:00:00 [facility] 2020-04-16 2020-04-16 Outpatient STLMLC STLMLC [id number] Common 00:00:00 00:00:00 [facility] 2020-03-31 2020-03-31 Outpatient STLMLC STLMLC [id number] Common 00:00:00 00:00:00 [facility] 2020-01-17 2020-01-17 Outpatient STLMLC STLMLC [id number] Common 00:00:00 00:00:00 [facility] 2020-01-16 2020-01-16 Outpatient STLMLC STLMLC [id number] Common 00:00:00 00:00:00 [facility] 2020-01-01 2020-01-01 Outpatient STLMLC STLMLC [id number] Common 00:00:00 00:00:00 [facility] 2019-12-04 2019-12-04 Outpatient STLMLC STLMLC [id number] Common 00:00:00 00:00:00 [facility] 2019-11-28 2019-11-28 [id number] Common 15:00:00 15:00:00 [place] [address] [facility] 2019-11-01 2019-11-01 [id number] Common 09:30:00 09:30:00 [place] [address] [facility] 2019-09-12 2019-09-12 [facility] [id number] Common 13:15:00 13:15:00 [place] [address] [facility] 2019-09-03 2019-09-03 [id number] Common 11:37:00 11:37:00 [place] [address] [facility] 2019-08-16 2019-08-16 [facility] [id number] Common 09:01:00 09:01:00 [place] [address] [facility] 2019-07-29 2019-07-29 [facility] [id number] Common 15:58:00 15:58:00 [place] [address] [facility] 2019-05-08 2019-05-08 [facility] [id number] Common 13:00:00 13:00:00 [place] [address] [facility] 2019-03-01 2019-03-01 [facility] [id number] Common 08:19:00 08:19:00 [place] [address] [facility] 2019-02-20 2019-02-20 [facility] [id number] Common 08:23:00 08:23:00 [place] [address] [facility] 2019-02-04 2019-02-04 [facility] [id number] Common 15:13:00 15:13:00 [place] [address] [facility] 2019-02-04 2019-02-04 [facility] [id number] Common 14:00:00 14:00:00 [place] [address] [facility] 2019-01-30 2019-01-30 [facility] [id number] Common 08:24:00 08:24:00 [place] [address] [facility] 2019-01-28 2019-01-28 [facility] [id number] Common 09:13:00 09:13:00 [place] [address] [facility] 2018-12-05 2018-12-05 [facility] [id number] Common 14:00:00 14:00:00 [address] [place] [address] [facility] Center Results Test Description Test Time Test Comments Results Result Comments Source SARS-COV2/RT-PCR ([facility]) 2019-10-09 22:28:00 Test Item Value Reference Range Interpretation Comme nts SARS-COV2/RT-PCR (test code = 3272890) Positive Not Detected, N egative, See AA external report for linked test SARS-COV-2 PERFORMING LAB (test code = [facility] [id number]) Results are for the detection of SARS-CoV-2 RNA. The SARS-CoV-2 RNA is generally detectable in nasopharyngeal swab specimens during the acute phase of infection. Positive results are indicative of active infection with SARS-CoV-2 and the patient is presumed to be contagious. Laboratory test results should always be considered in the clinical correlation with patient history and other epidemiological and diagnostic information that is necessary to determine patient infection status. Patient management decisions should follow current CDC guidelines. Positive results do not rule out bacterial infection or co- infection with other viruses. The agent detected may not be the definite cause of disease. The limit of detection for this assay is 800 copies/mL.This SARS CoV-2 test is a real-time RT-PCR test intended for the qualitative detection of nucleic acid from SARS-CoV-2 in a nasopharyngeal swab specimen collected from individuals suspected of COVID-19 by their healthcare provider.This test has not been Food and Drug Administration (FDA) cleared or approved. This is a modified version of an approvedEmergency Use Authorization (EUA) and is in the process of review by the FDA. Once authorized by theFDA, the issued EUA will be effective until the declaration that circumstances exist justifying the a uthorization of the emergency use of in vitro diagnostic tests for detection and/or diagnosis of COVID-19 is terminated under Section 564(b)(2) of the Act or the EUA is revoked under Section 564(g) of the Act.Fact Sheet for Healthcare Providers:https://www.CheckPoint HR.BoardVitals/sites/default/files/product/documen ts/Ryug_Rmrmt_BW_Bcobvqnzs_Puzv_HYLN-TjU-0.pdfFact Sheet for Healthcare Patients:https://www.CheckPoint HR.c om/sites/default/files/product/documents/Svyn_Rvbyl_Vholfckg_Jghz_HBKH-LuC-3.pdf Performing Laboratory:[facility] [place] [address]
--- NOTE | 2022-03-11 13:37 | RAD REPORT ---
EXAM DESCRIPTION: CT - Head C Spine Mpr Wo Con - 03/11/2022 1:15 pm CLINICAL HISTORY: Head and neck injury status post fall. Head and neck pain COMPARISON: None. TECHNIQUE: Computed axial tomography of the head and cervical spine was obtained. Sagittal and coronal reconstruction was performed. All CT scans are performed using dose optimization technique as appropriate and may include automated exposure control or mA/KV adjustment according to patient size. FINDINGS: An intracranial bleed is not seen. The ventricles are normal in caliber. An extra-axial fluid collection is not noted.Fluid within the visualized sinuses and mastoids is not seen A cervical fracture is not visualized. No dislocation is noted. Mild spondylosis mid and distal cervical spine. No high-grade central/foraminal stenosis seen IMPRESSION: No acute intracranial abnormality is seen. A cervical fracture is not visualized. If the patient continues to have symptoms to suggest intracra nial /spinal cord pathology then MRI would be recommended
--- NOTE | 2022-03-11 13:57 | RAD REPORT ---
EXAM DESCRIPTION: RAD - Humerus Right - 03/11/2022 1:34 pm CLINICAL HISTORY: PAINafter fall COMPARISON: No comparisons FINDINGS: No fracture is identified. There is no dislocation or periosteal reaction noted. No foreig n body or other soft tissue abnormality. Minimal AC joint degenerative change present without separat ion and without spurring. No suspicious soft tissue findings. IMPRESSION: Negative right humerus examination.
--- NOTE | 2022-03-11 13:57 | RAD REPORT ---
EXAM DESCRIPTION: RAD - Forearm Right - 03/11/2022 1:34 pm CLINICAL HISTORY: PAINafter fall COMPARISON: No comparisonsNone. FINDINGS: No fracture is identified. There is no dislocation or periosteal reaction noted. No foreign body or other soft tissue abnormality. IMPRESSION: Negative right forearm examination.
--- NOTE | 2022-03-11 14:25 | ER ---
Nurse's Notes [facility] Name: Cj Nash Age: 71 yrs Sex: Female : 1950 Arrival Date: 03/11/2022 Time: 12:51 Bed IW2 Private MD: Frederick Plaza Diagnosis: Fall on same level from slipping, tripping and stumbling without subsequent striking against object;Cervicalgia;Pain in right arm Presentation: 12 12:59 Chief complaint: Right sided neck pain that radiates to upper back and pain in right hb arm after mechanical fall from standing last night. Denies other injuries. Negative LOC. Coronavirus screen: At this time, the client does not indicate any symptoms associated with coronavirus-19. Ebola Screen: No symptoms or risks identified at this time. Initial Sepsis Screen: Does the patient meet any 2 criteria? No. Patient's initial sepsis screen is negative. Does the patient have a suspected source of infection? No. Patient's initial sepsis screen is negative. Risk Assessment: Do you want to hurt yourself or someone else? Patient reports no desire to harm self or others. Onset of symptoms was March 10, 2022. 12:59 Method Of Arrival: Ambulatory hb 12:59 Acuity: SAMIR 4 hb Historical: - Allergies: 13:01 Codeine; hb 13:01 Morphine; hb - Home Meds: 13:01 amlodipine 10 mg tab [Active]; BuSpar Oral [Active]; duloxetine 60 mg Oral cpDR 1 cap hb once daily [Active]; furosemide 20 mg Oral tab 1 tab once daily [Active]; lorazepam 0.5 mg Oral tab 1 tab 2 times per day for Anxiety [Active]; Simvastatin Oral [Active]; - PMHx: 13:01 Anxiety; Hyperlipidemia; Hypertension; hb - Immunization history:: Adult Immunizations up to date. - Social history:: Smoking status: Patient denies any tobacco usage or history of. Vital Signs: 12:59 BP 154 / 85; Pulse 82; Resp 16; Temp 97.3; Pulse Ox 100% on R/A; Weight 92.99 kg; hb Height 5 ft. 2 in. (157.48 cm); Pain 8/10; 12:59 Body Mass Index 37.49 (92.99 kg, 157.48 cm) hb ED Course: 12:51 Patient arrived in ED. mr 12:51 Frederick Plaza DO is Private Physician. mr 13:00 Triage completed. hb 13:01 Arm band placed on. hb 13:02 [facility]C [facility]. kb 13:02 Víctor Pizarro MD is Attending Physician. kb 13:17 Head C Spine Mpr Wo Con In Process Unspecified. EDMS 13:35 Humerus Right XRAY In Process Unspecified. EDMS 13:35 Forearm Right XRAY In Process Unspecified. EDMS Administered Medications: No medications were administered Outcome: 14:25 Discharge ordered by . kb 15:02 Patient left the ED. hb Signatures: Dispatcher [employer] EDMS Noemi Rojas FNP-C FNP-Ckb Rivera, Mary mr Baxter, Heather, RN RN hb
--- NOTE | 2022-03-11 14:25 | EDPHYS ---
Physician Documentation [facility] Name: Cj Nash Age: 71 yrs Sex: Female : 1950 Arrival Date: 03/11/2022 Time: 12:51 Bed IW2 Private MD: Frederick Plaza ED Physician Víctor Pizarro HPI: 03/11 16:22 This 71 yrs old Female presents to ER via Ambulatory with complaints of Fall kb Injury. 16:22 Details of fall: The patient fell from an upright position, while walking. Onset: The kb symptoms/episode began/occurred yesterday. Associated injuries: The patient sustained neck injury, pain, pain with movement, right arm, painful injury. Severity of symptoms: At their worst the symptoms were moderate, in the emergency department the symptoms are unchanged. The patient has not experienced similar symptoms in the past. The patient has not recently seen a physician. Pt reports she tripped and fell yesterday landing on right side. c/o pain to right arm and neck. . Historical: - Allergies: 13:01 Codeine; hb 13:01 Morphine; hb - Home Meds: 13:01 amlodipine 10 mg tab [Active]; BuSpar Oral [Active]; duloxetine 60 mg Oral cpDR 1 cap hb once daily [Active]; furosemide 20 mg Oral tab 1 tab once daily [Active]; lorazepam 0.5 mg Oral tab 1 tab 2 times per day for Anxiety [Active]; Simvastatin Oral [Active]; - PMHx: 13:01 Anxiety; Hyperlipidemia; Hypertension; hb - Immunization history:: Adult Immunizations up to date. - Social history:: Smoking status: Patient denies any tobacco usage or history of. ROS: 16:19 Constitutional: Negative for fever, chills, and weight loss. kb 16:19 Neck: Positive for pain with movement, pain at rest, of the right posterior aspect of neck and left posterior aspect of neck. 16:19 MS/extremity: Positive for pain, of the right arm. 16:19 All other systems are negative. Exam: 16:19 Constitutional: This is a well developed, well nourished patient who is awake, alert, kb and in no acute distress. Head/Face: Normocephalic, atraumatic. ENT: Moist Mucous membranes Cardiovascular: Regular rate and rhythm with a normal S1 and S2. No gallops, murmurs, or rubs. No pulse deficits. Respiratory: Respirations even and unlabored. No increased work of breathing. Talking in full sentences Abdomen/GI: Soft, non-tender. No distention Skin: Warm, dry with normal turgor. Normal color. MS/ Extremity: Pulses equal, no cyanosis. Neurovascular intact. Full, normal range of motion. Neuro: Awake and alert, GCS 15, oriented to person, place, time, and situation. Moves all extremities. Normal gait. Psych: Awake, alert, with orientation to person, place and time. Behavior, mood, and affect are within normal limits. Vital Signs: 12:59 BP 154 / 85; Pulse 82; Resp 16; Temp 97.3; Pulse Ox 100% on R/A; Weight 92.99 kg; hb Height 5 ft. 2 in. (157.48 cm); Pain 8/10; 12:59 Body Mass Index 37.49 (92.99 kg, 157.48 cm) hb MDM: 13:02 Patient medically screened. kb 16:19 Data reviewed: vital signs, nurses notes. Data interpreted: Pulse oximetry: on room air kb is 100 %. Interpretation: normal. 16:20 Counseling: I had a detailed discussion with the patient and/or guardian regarding: the kb historical points, exam findings, and any diagnostic results supporting the discharge/admit diagnosis, radiology results, the need for outpatient follow up, a family practitioner, to return to the emergency department if symptoms worsen or persist or if there are any questions or concerns that arise at home. 03/11 13:03 Order name: Humerus Right XRAY; Complete Time: 14:09 kb 03/11 13:03 Order name: Forearm Right XRAY; Complete Time: 14:09 kb 03/11 13:03 Order name: CT Head C Spine kb 03/11 13:07 Order name: Head C Spine Mpr Wo Con; Complete Time: 13:45 EDMS Administered Medications: No medications were administered Disposition: 16:39 Co-signature as Attending Physician, Víctor Pizarro MD. rn Disposition Summary: 03/11/22 14:25 Discharge Ordered Location: Home kb Condition: Stable kb Diagnosis - Fall on same level from slipping, tripping and stumbling without subsequent kb striking against object - Cervicalgia kb - Pain in right arm kb Followup: kb - With: Emergency Department - When: As needed - Reason: Worsening of condition Followup: kb - With: Private Physician - When: 2 - 3 days - Reason: Recheck today's complaints, Continuance of care, Re-evaluation by your physician Discharge Instructions: - Discharge Summary Sheet kb - Musculoskeletal Pain kb Forms: - Medication Reconciliation Form kb - Thank You Letter kb - Antibiotic Education kb - Prescription Opioid Use kb Prescriptions: - Diclofenac Sodium 75 mg Oral tablet,delayed release (DR/EC) - take 1 tablet by ORAL route 2 times per day As needed; 30 tablet; Refills: 0, kb Product Selection Permitted Signatures: Dispatcher [employer] EDNoemi Melendrez, DAISY-C RELATIONS DIRECTOR-Víctor Layne MD MD rn Baxter, Heather, RN RN
[2022-03-11 15:29] VITALS: BP 154/85; TEMP 97.3; O2SAT 100
== END 2022-03-11 15:02 | disposition home or self-care (01) ==
LOC: ER 12:48
DX: M54.2 Cervicalgia (principal); M79.601 Pain in right arm; W01.0XXA Fall on same level from slipping, tripping and stumbling without subsequent striking against object, initial encounter; I10 Essential (primary) hypertension; E78.5 Hyperlipidemia, unspecified; Z88.5 Allergy status to narcotic agent
CPT/HCPCS: 70450; 72125; 99282